=== PATIENT | female | born 1950 | race Caucasian/White ===

== ENCOUNTER → 2016-08-13 | Outpatient (CLI) | payer OTHER, BC ==
[~2016-08-13] MED LIST: ACET-1256 PO; ALBUAER2 INH; CPR500 PO; FAMO20TA11 PO; GLC/500 PO; LEVO-366 PO; LISI-461 PO; LOVAZA PO; METR-163 PO; MOME6000 NAE; MULT-1027 PO; NASONEX NAE; NXM/40 PO; SULF800T23 PO; TRIA1SPR4; VTMD PO; WHEAPOW13 PO
--- NOTE | 2016-08-13 16:11 | MAMMOGRAPHY REPORT ---
BILATERAL DIGITAL SCREENING MAMMOGRAM WITH CAD: 08/13/2016 CLINICAL HISTORY: Routine screening. Patient has no complaints. TECHNIQUE: Current study was also evaluated with a Computer Aided Detection (CAD) system. Bilatera l CC and MLO views were obtained. COMPARISON: Comparison is made to exams dated: 08/05/2015 mammogram, 07/30/2014 mammogram, 07/17/2014 mammogram, 07/12/2013 mammogram, 07/05/2012 mammogram, and 06/30/2011 mammogram - [facility]. BREAST COMPOSITION: There are scattered areas of fibroglandular density in both breasts. FINDINGS: No suspicious masses, calcifications, or areas of architectural distortion are noted in e ither breast. There has been no significant interval change compared to prior exams. Scattered bila teral benign-appearing calcifications are not significantly changed. Small benign-appearing mass in the right inferior breast on the MLO view was previously marked with a mole marker and is therefore compatible with a mole. IMPRESSION: ACR BI-RADS CATEGORY 2: BENIGN There is no mammographic evidence of malignancy. A 1 year screening mammogram is recommended. The p atient will receive written notification of the results. Approximately 10% of breast cancers are not detected with mammography. A negative mammographic repor t should not delay biopsy if a clinically suggestive mass is present. Shoshana Zelaya M.D. /:08/13/2016 12:36:26 Trucker Hand: Liset KOEHLER)([place])([place]), [facility] letter sent: Normal 1/2 BI-RADS Code: ACR BI-RADS Category 2: Benign
== END | disposition home or self-care (01) ==
LOC: C.MAMM 11:14
PROVIDERS: ATTEND Obstetrics & Gynecology
DX: Z12.31 Encounter for screening mammogram for malignant neoplasm of breast (principal)

== ENCOUNTER → 2016-09-04 | Outpatient (CLI) | payer OTHER, BC ==
--- NOTE | 2016-09-04 11:17 | DIAGNOSTIC IMAGING REPORT ---
ULTRASOUND ABDOMEN COMPLETE CLINICAL HISTORY: Abnormal liver function studies. Fatigue. COMPARISON STUDY: No priors. TECHNIQUE: Real-time, grayscale, and color flow sonography of the abdomen was performed. Images are reviewed in the transverse and longitudinal planes. FINDINGS: Liver: The liver is mildly enlarged and demonstrates heterogeneously increased echotexture consistent with severe hepatic steatosis. Note that this degrades acoustic penetration of the liver. There is no intrahepatic biliary ductal dilatation. The main portal vein is patent. Gallbladder: The gallbladder is normal in appearance. No gallstones are identified. There is no gallbladder wall thickening or pericholecystic fluid. A sonographic Garzon's sign is reportedly absent. The common bile duct measures up to 0.5 cm in diameter. Pancreas: Visualized portions of the pancreatic head and body are normal in appearance. Spleen: The spleen is top normal in size and homogeneous in echotexture, measuring 13.3 cm in length. Kidneys: The kidneys are normal in size and echotexture. There is no hydronephrosis. The right kidney measures 10.5 cm in length and the left kidney measures 10.3 cm in length. No shadowing calculi are identified. Abdominal vasculature: Visualized portions of the abdominal aorta are normal in appearance. Ascites: None. IMPRESSION: 1. No acute sonographic abnormality is identified. 2. Hepatomegaly and severe hepatic steatosis. Electronically signed by: aGgan Alston M.D. 09/04/2016 11:16 AM Dictated Date/Time: 09/04/2016 11:14 AM
--- NOTE | 2016-09-04 11:17 | DIAGNOSTIC IMAGING REPORT ---
CHEST 2 VIEWS ROUTINE CLINICAL HISTORY: FATIGUE, COUGH COMPARISON STUDY: 01/15/2015 FINDINGS: The cardiac and mediastinal contours are normal. There is no evidence of focal pulmonary consolidation. There is no evidence of failure. No pleural effusions are visualized.[ There are persistent linear scar/atelectatic changes visualized in the lateral view localized either the lingula or right middle lobe. IMPRESSION: No active disease in the chest. Electronically signed by: Juan Fountain M.D. 09/04/2016 11:15 AM Dictated Date/Time: 09/04/2016 11:14 AM
== END | disposition home or self-care (01) ==
LOC: C.ULTR 10:17
PROVIDERS: ATTEND Internal Medicine
DX: R94.5 Abnormal results of liver function studies (principal); R53.83 Other fatigue; R05 Cough; R16.0 Hepatomegaly, not elsewhere classified; K76.0 Fatty (change of) liver, not elsewhere classified

== ENCOUNTER → 2016-09-12 | Outpatient (CLI) | payer OTHER, BC ==
[2016-09-12 15:21] LABS: HEMATOCRIT 40.6 % (37-47); MEAN CELL VOLUME 84.4 fL (80-100); MEAN CORPUSCULAR HEMOGLOBIN 30.4 pg (25-34); MEAN PLATELET VOLUME 10.2 fL (7.4-10.4); PLATELET COUNT 326 K/uL (130-400); RED BLOOD COUNT 4.81 M/uL (4.2-5.4); WHITE BLOOD COUNT 6.39 K/uL (4.8-10.8)
[2016-09-12 15:38] LABS: INR 1.1 (0.9-1.1); PROTHROMBIN TIME (PATIENT) 11.3 SECONDS (9.0-12.0)
[2016-09-12 15:42] LABS: ALT/SGPT 71 U/L (12-78); AST/SGOT 37 U/L (15-37); BLOOD UREA NITROGEN 15 mg/dl (7-18); BUN/CREATININE RATIO 21.7 (10-20); CALCIUM 8.9 mg/dl (8.5-10.1); CARBON DIOXIDE 26 mmol/L (21-32); CHLORIDE 103 mmol/L (98-107); CREATININE 0.69 mg/dl (0.60-1.20); GLUCOSE 104 mg/dl (70-99); SODIUM 140 mmol/L (136-145)
[2016-09-12 15:45] LABS: ALB/GLOB RATIO 1.3 (0.9-2); ALKALINE PHOSPHATASE 94 U/L (45-117)
[2016-09-12 15:59] LABS: HEPATITIS B AB NEG
== END | disposition home or self-care (01) ==
LOC: C.LAB 14:41
PROVIDERS: ATTEND Internal Medicine
DX: R94.5 Abnormal results of liver function studies (principal); R16.0 Hepatomegaly, not elsewhere classified; E11.9 Type 2 diabetes mellitus without complications

== ENCOUNTER 2016-09-20 18:43 | Emergency (ER) | payer OTHER, BC ==
[~2016-09-20] VITALS: Ht 152.4 cm; Wt 76.2 kg
[~2016-09-20 18:43] MED LIST changes: -ACET-1256 PO; -CPR500 PO; -FAMO20TA11 PO; -GLC/500 PO; -LISI-461 PO; -LOVAZA PO; -METR-163 PO; -MOME6000 NAE; -MULT-1027 PO; -NASONEX NAE; -NXM/40 PO; -SULF800T23 PO; -TRIA1SPR4; -VTMD PO; -WHEAPOW13 PO
[2016-09-20 18:58] VITALS: TEMP 37.2; Ht 152.4 cm; Wt 76.2 kg
[2016-09-20] MEDS ORDERED: SODIUM CHLORIDE 0.9% 500ML 500 ML IV STA (20:54)
[2016-09-20] MEDS ORDERED: ACETAMINOPHEN 500 MG TAB PO STA (20:54)
[2016-09-20 21:05] LABS: BASO % 0.7 %; BASO ABS # 0.05 K/uL (0-0.2); COMPLETE YES; EOS % 3.2 %; IG% 0.1 %; LYMPH % 46.7 %; LYMPH ABS # 3.25 K/uL (1.2-3.4); MEAN CELL VOLUME 83.9 fL (80-100); MEAN CORPUSCULAR HEMOGLOBIN 29.9 pg (25-34); MEAN CORPUSCULAR HGB CONC 35.7 g/dl (32-36); MEAN PLATELET VOLUME 10.7 fL (7.4-10.4); MONO % 6.6 %; NEUT % 42.7 %; PLATELET COUNT 299 K/uL (130-400); RED BLOOD COUNT 4.41 M/uL (4.2-5.4); WHITE BLOOD COUNT 6.96 K/uL (4.8-10.8)
--- NOTE | 2016-09-20 21:06 | EMERGENCY ROOM VISIT NOTE ---
History Report prepared by Abena: Key Villagomez Under the Supervision of: Dr. Leland Vuong M.D. First contact with patient: 20:27 Chief Complaint: INFECTION Stated Complaint: LIVER BIOPSY 09-18,CHILLS,WEAK,FREQUENT URINE Nursing Triage Summary: Pt reports she had a liver biopsy on Wednesday at [place]. Pt reports she started having chills last night. Pt also reports she is having some urinary symptoms. History of Present Illness The patient is a 66 year old female who presents to the Emergency Room with complaints of a possible infection beginning DRAIN LAYER. The patient had an US of her liver on September 04. Her PCP ordered this because her liver enzymes were elevated. She was diagnosed with fatty liver disease and then two days ago she had a liver biopsy at [facility]. This was a conscious sedation procedure and she was not intubated. The patient states that she was feeling well after the procedure. She was advised to take Aleve for pain and has been doing that. Yesterday afternoon she started to feel unwell. She was feeling hot and cold and generally weak. She reports tenderness at the site of the liver biopsy under her right breast. She notes increased urinary frequency as well. The patient has been taking Tylenol for her symptoms today. She called [facility] and they advised her to follow-up with her doctor tomorrow. The patient is a retired nurse and states that she did not feel comfortable waiting until tomorrow to be seen. She denies any fevers. She rates her current pain as a 4/ 10. Source of History: patient Onset: DRAIN LAYER Position: other (global) Symptom Intensity: 4/10 Quality: other (infection) Timing: worsening Modifying Factors (Worsening): other (recent liver biopsy) Modifying Factors (Relieving): tylenol Associated Symptoms: + chills, + urinary symptoms, No fevers Review of Systems See HPI for pertinent positives & negatives. A total of 10 systems reviewed and were otherwise negative. Past Medical & Surgical Medical Problems: (1) Cameron's Esophagus (2) Diabetes (3) Fibromyalgia (4) Hyperlipidemia (5) Pneumonia Family History No pertinent history stated. Social History Smoking Status: Never Smoker Marital Status: Housing Status: lives with significant other Occupation Status: retired Current/Historical Medications Scheduled Esomeprazole Magnesium (Nexium), 40 MG PO DAILY Famotidine (Pepcid), 20 MG PO HS Lisinopril (Lisinopril), 10 MG PO BID Metformin Hcl (Glucophage), 500 MG PO BID Multiple Vitamin (Multi Vitamin), 1 TAB PO DAILY [Lovaza], 1 GM PO BID [Nasonex], 1 SPRAY ДМИТРИЙ BID Scheduled PRN Acetaminophen (Tylenol), 500 MG PO DIRECTED PRN for Pain Allergies Coded Allergies: Mepivacaine (Verified Allergy, Unknown, UNKNOWN, 09/20/16) Physical Exam Vital Signs Date Time Temp Pulse Resp B/P Pulse Ox O2 Delivery O2 Flow Rate FiO2 09/20/16 22:41 68 18 138/66 94 Room Air 09/20/16 21:02 72 18 146/80 95 Room Air 09/20/16 18:58 37.2 91 20 184/84 98 Room Air Physical Exam GENERAL: Patient is a healthy-appearing well-nourished 66 year old female. HEAD: Normocephalic atraumatic EYES: Ocular movements intact pupils equal and react to light OROPHARYNX mucous membranes are moist no exudates present no erythema or edema present NECK: Supple no nuchal rigidity CHEST: Good equal expansion LUNGS: Clear and equal to auscultation CARDIAC: Normal S1 and S2 ABDOMEN: Soft nontender no guarding, surgical site in the RUQ with no evidence of infection and minimal bruising. BACK: No CVA tenderness EXTREMITIES: No pain upon palpation normal muscle strength in all groups no clubbing cyanosis or edema NEURO: Patient is following commands is answering questions appropriately. Alert and oriented x3 Cranial Nerves 2-12 grossly intact Medical Decision & Procedures Laboratory Results 09/20/16 20:08 Red Blood Count 4.41, Mean Corpuscular Volume 83.9, Mean Corpuscular Hemoglobin 29.9, Mean Corpuscular Hemoglobin Concent 35.7, Mean Platelet Volume 10.7, Neutrophils (%) (Auto) 42.7, Lymphocytes (%) (Auto) 46.7, Monocytes (%) (Auto) 6.6, Eosinophils (%) (Auto) 3.2, Basophils (%) (Auto) 0.7, Neutrophils # (Auto) 2.97, Lymphocytes # (Auto) 3.25, Monocytes # (Auto) 0.46, Eosinophils # (Auto) 0.22, Basophils # (Auto) 0.05 09/20/16 20:08 09/20/16 21:40 Test 09/20/16 00:00 09/20/16 20:08 09/20/16 21:05 09/20/16 21:40 Urine Color YELLOW Urine Appearance CLEAR (CLEAR) Urine pH 6.0 (4.5-7.5) Urine Specific [place] 1.000 (1.000-1.030) Urine Protein NEG (NEG) Urine Glucose (UA) NEG (NEG) Urine Ketones NEG (NEG) Urine Occult Blood NEG (NEG) Urine Nitrite NEG (NEG) Urine Bilirubin NEG (NEG) Urine Urobilinogen NEG (NEG) Urine Leukocyte Esterase NEG (NEG) White Blood Count 6.96 K/uL (4.8-10.8) Red Blood Count 4.41 M/uL (4.2-5.4) Hemoglobin 13.2 g/dL (12.0-16.0) Hematocrit 37.0 % (37-47) Mean Corpuscular Volume 83.9 fL (80-100) Mean Corpuscular Hemoglobin 29.9 pg (25-34) Mean Corpuscular Hemoglobin Concent 35.7 g/dl (32-36) Platelet Count 299 K/uL (130-400) Mean Platelet Volume 10.7 fL (7.4-10.4) Neutrophils (%) (Auto) 42.7 % Lymphocytes (%) (Auto) 46.7 % Monocytes (%) (Auto) 6.6 % Eosinophils (%) (Auto) 3.2 % Basophils (%) (Auto) 0.7 % Neutrophils # (Auto) 2.97 K/uL (1.4-6.5) Lymphocytes # (Auto) 3.25 K/uL (1.2-3.4) Monocytes # (Auto) 0.46 K/uL (0.11-0.59) Eosinophils # (Auto) 0.22 K/uL (0-0.5) Basophils # (Auto) 0.05 K/uL (0-0.2) RDW Standard Deviation 40.2 fL (36.4-46.3) RDW Coefficient of Variation 13.2 % (11.5-14.5) Immature Granulocyte % (Auto) 0.1 % Immature Granulocyte # (Auto) 0.01 K/uL (0.00-0.02) Anion Gap 12.0 mmol/L (3-11) Est Creatinine Clear Calc Drug Dose 62.2 ml/min Estimated GFR () 89.1 Estimated GFR (Non- 76.9 BUN/Creatinine Ratio 9.7 (10-20) Calcium Level 8.6 mg/dl (8.5-10.1) Total Bilirubin 0.7 mg/dl (0.2-1) Alanine Aminotransferase (ALT/SGPT) 55 U/L (12-78) Alkaline Phosphatase 87 U/L (45-117) Total Protein 7.2 gm/dl (6.4-8.2) Albumin 3.7 gm/dl (3.4-5.0) Lipase 237 U/L (73-393) Influenza Type A (RT-PCR) Neg for Influ A (NEG) Influenza Type A Antigen Neg for Influ A (NEG) Influenza Type B Antigen Neg for Influ B (NEG) Influenza Type B (RT-PCR) Neg for Influ B (NEG) Direct Bilirubin < 0.1 mg/dl (0-0.2) Aspartate Amino Transf (AST/SGOT) 25 U/L (15-37) Labs reviewed by ED physician. Medications Administered Medications (Trade) Dose Ordered Sig/Pierre Route Start Time Stop Time Status Last Admin Dose Admin Sodium Chloride (Nss 500ml) 500 ml @ 999 mls/hr Q31M STAT IV 09/20/16 20:54 09/20/16 21:24 DC 09/20/16 21:02 999 MLS/HR Acetaminophen (Tylenol Tab) 1,000 mg NOW STAT PO 09/20/16 20:54 09/20/16 20:55 DC 09/20/16 21:02 1,000 MG ED Course 2040: Past medical records reviewed. The patient was evaluated in room C1B. A complete history and physical examination was performed. 2053: Tylenol tab 1000 mg PO, NSS 500 ml @ 999 mls/hr IV 1: I reassessed the patient at this time. She is feeling better and resting comfortably. I discussed the results and treatment plan with the patient. I answered all pertaining questions that she had. She expressed understanding and verbalized agreement. The patient will be discharged home. Medical Decision Differential diagnosis: Etiologies such as viral syndrome, otitis, pharyngitis, pneumonia, influenza, meningitis, urinary tract infection, sepsis, bacteremia, as well as others were entertained. This is a 66-year-old female who presents emergency department complaining of chills as well as urinary frequency. An IV was established, patient given normal saline bolus. I will note that the patient does not have an elevation in her white blood count has a normal renal profile and has a normal liver profile. I do not see any evidence of infection. Based on these findings I feel the patient can be safely discharged home for follow-up with her primary care physician. Patient was in agreement with the treatment plan. Impression Primary Impression: Chills (without fever) Scribe Attestation The scribe's documentation has been prepared under my direction and personally reviewed by me in its entirety. I confirm that the note above accurately reflects all work, treatment, procedures, and medical decision making performed by me. Departure Information Dispostion Home / Self-Care Referrals Sera Crespo M.D. (PCP) Forms HOME CARE DOCUMENTATION FORM, IMPORTANT VISIT INFORMATION, WORK / SCHOOL INSTRUCTIONS Patient Instructions My [facility] Additional Instructions Follow up with DR Crespo's office You have been examined and treated today on an emergency basis only. This is not a substitute for, or an effort to provide, complete comprehensive medical care. It is impossible to recognize and treat all injuries or illnesses in a single emergency department visit. It is therefore important that you follow up closely with Dr Crespo. Call as soon as possible for an appointment. Thank you for your time and consideration. I look forward to speaking with you again soon. Please don't hesitate to call us if you have any questions.
[2016-09-20 21:10] LABS: URINE APPEARANCE CLEAR (CLEAR); URINE BILIRUBIN NEG (NEG); URINE COLOR YELLOW; URINE NITRITE NEG (NEG); UROBILINOGEN NEG (NEG)
[2016-09-20 21:21] LABS: MANUAL MICROSCOPIC REQUIRED? NO; REVIEW REQ? NO
[2016-09-20 21:24] LABS: ALKALINE PHOSPHATASE 87 U/L (45-117); ALT/SGPT 55 U/L (12-78); BLOOD UREA NITROGEN 8 mg/dl (7-18); BUN/CREATININE RATIO 9.7 (10-20); CALCIUM 8.6 mg/dl (8.5-10.1); CARBON DIOXIDE 23 mmol/L (21-32); CHLORIDE 110 mmol/L (98-107); CREATININE 0.79 mg/dl (0.60-1.20); GLUCOSE 130 mg/dl (70-99); SODIUM 145 mmol/L (136-145)
[2016-09-20] MEDS ORDERED: LOVAZA PO (22:13)
[2016-09-20] MEDS ORDERED: LISI-461 PO (22:13)
[2016-09-20] MEDS ORDERED: MULT-1027 PO (22:13)
[2016-09-20] MEDS ORDERED: NASONEX NAE (22:13)
[2016-09-20] MEDS ORDERED: GLC/500 PO (22:13)
[2016-09-20] MEDS ORDERED: FAMO20TA11 PO (22:13)
[2016-09-20] MEDS ORDERED: NXM/40 PO (22:13)
[2016-09-20] MEDS ORDERED: ACET-1256 PO (22:13)
[2016-09-20 22:19] LABS: POTASSIUM 3.4 mmol/L (3.5-5.1)
[2016-09-20 22:24] LABS: AST/SGOT 25 U/L (15-37)
[2016-09-20 22:41] VITALS: BP 138/66; PULSE 68; O2SAT 94
[2016-09-20 22:50] LABS: INFLUENZA A PCR Neg for Influ A (NEG); INFLUENZA B PCR Neg for Influ B (NEG)
[2016-11-09] MEDS ORDERED: METR-163 PO (13:00)
[2016-11-09] MEDS ORDERED: CPR500 PO (13:00)
== END 2016-09-20 22:43 | disposition home or self-care (01) ==
LOC: C.EDB 18:44 → C.EDC 22:43
DX: R68.83 Chills (without fever) (principal); E11.9 Type 2 diabetes mellitus without complications; E78.5 Hyperlipidemia, unspecified; K22.70 Barrett's esophagus without dysplasia; Z79.84 Long term (current) use of oral hypoglycemic drugs; Z79.899 Other long term (current) drug therapy; Z88.8 Allergy status to other drugs, medicaments and biological substances

== ENCOUNTER → 2016-10-07 | Outpatient (CLI) | payer OTHER, BC ==
[~2016-10-07] MED LIST changes: +ACET-1256 PO; -ALBUAER2 INH; +CPR500 PO; +FAMO20TA11 PO; +GLC/500 PO; -LEVO-366 PO; +LISI-461 PO; +LOVAZA PO; +METR-163 PO; +MOME6000 NAE; +MULT-1027 PO; +NASONEX NAE; +NXM/40 PO; +SULF800T23 PO; +TRIA1SPR4; +VTMD PO; +WHEAPOW13 PO
== END | disposition home or self-care (01) ==
LOC: C.LAB 12:53
PROVIDERS: ATTEND Internal Medicine Gastroenterology
DX: K76.0 Fatty (change of) liver, not elsewhere classified (principal)

== ENCOUNTER 2016-10-08 15:38 | Emergency (ER) | payer OTHER, BC ==
[~2016-10-08] VITALS: Ht 152.4 cm; Wt 74.0 kg
[~2016-10-08 15:38] MED LIST changes: -CPR500 PO; -METR-163 PO; -MOME6000 NAE; -SULF800T23 PO; -TRIA1SPR4; -VTMD PO; -WHEAPOW13 PO
[2016-10-08 15:44] VITALS: TEMP 37; Ht 152.4 cm; Wt 74.0 kg
[2016-10-08] MEDS ORDERED: SODIUM CHLORIDE 0.9% 1000ML 1,000 ML IV STA (17:38)
[2016-10-08] MEDS ORDERED: ACETAMINOPHEN 500 MG TAB PO STA (18:06)
[2016-10-08 18:11] LABS: URINE APPEARANCE CLEAR (CLEAR); URINE BILIRUBIN NEG (NEG); URINE COLOR RED; URINE EPITHELIAL CELL AUTO 0-5 /lpf (0-5); URINE NITRITE NEG (NEG); UROBILINOGEN NEG (NEG); ZZUR CULT IF INDIC CLEAN CATCH YES
[2016-10-08 18:19] LABS: MANUAL MICROSCOPIC REQUIRED? NO; REVIEW REQ? NO
[2016-10-08 19:07] LABS: BASO % 0.2 %; BASO ABS # 0.02 K/uL (0-0.2); COMPLETE YES; EOS % 0.4 %; HEMATOCRIT 37.1 % (37-47); IG% 0.1 %; LYMPH ABS # 1.85 K/uL (1.2-3.4); MEAN CELL VOLUME 83.9 fL (80-100); MEAN CORPUSCULAR HEMOGLOBIN 29.6 pg (25-34); MEAN CORPUSCULAR HGB CONC 35.3 g/dl (32-36); MEAN PLATELET VOLUME 10.1 fL (7.4-10.4); MONO % 4.2 %; NEUT % 76.1 %; PLATELET COUNT 291 K/uL (130-400); RED BLOOD COUNT 4.42 M/uL (4.2-5.4); WHITE BLOOD COUNT 9.73 K/uL (4.8-10.8)
[2016-10-08 19:24] LABS: BUN/CREATININE RATIO 16.9 (10-20); CALCIUM 8.7 mg/dl (8.5-10.1); CREATININE 0.6 mg/dl (0.60-1.20); POTASSIUM 3.5 mmol/L (3.5-5.1)
[2016-10-08] MEDS ORDERED: SULFAMETHOXAZOLE/TRIMETHOPRIM DS 800/160MG TAB PO STA (19:47)
[2016-10-08] MEDS ORDERED: SULF800T23 PO (19:50)
[2016-10-08 20:10] VITALS: BP 129/79; PULSE 91; O2SAT 95
--- NOTE | 2016-10-08 23:38 | EMERGENCY ROOM VISIT NOTE ---
History Report prepared by Abena: Mignon Del Valle Under the Supervision of: Dr. Osvaldo Barksdale D.O. 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 She states that the hematuria is improving, but she is still experiencing it. The patient states that she woke up today with a pressure in her lower abdomen that felt similar to when she has to urinate. The patient voided after and passed blood and clots in her urine. She still experiences abdominal pressure when she tries to urinate. Additionally, she is experiencing increased urinary frequency and she states that she was nearly incontinent of urine all day so she had to wear a pad. She also began experiencing chills today. The patient denies fevers over 100.4, nausea, vomiting, and diarrhea. The patient has never experienced an urinary tract infection in the past. The patient saw [facility]ATOR to make sure it wasn't coming from her vagina, but they said that it wasn't and they recommended that she come into the ED. The patient adds that her blood pressure was elevated when it was taken in the [facility] office and she states that it was 160/108. A urine culture was sent to the lab and they prescribed her Cipro. The patient states that she had an enlarged liver on ultrasound on September 04, 2016 and a biopsy on September 18, 2016 showed that she has fatty liver disease. She is also experiencing intermittent constipation that started about one month ago , but she has been worked up for that in the past. Her most recent bowel movement was last night. The patient still has her gallbladder and appendix. She is not on any blood thinners. Source of History: patient Onset: this morning Position: other (bladder, urinary tract) Quality: other (hematuria) Timing: other (persistent) Associated Symptoms: + chills, No diarrhea, No fevers, No nausea, No vomiting Review of Systems See HPI for pertinent positives & negatives. A total of 10 systems reviewed and were otherwise negative. Past Medical & Surgical Medical Problems: (1) Cameron's Esophagus (2) Diabetes (3) Fibromyalgia (4) Hyperlipidemia (5) Pneumonia Family History Cancer Heart disease Hypertension Lung disease Social History Smoking Status: Never Smoker Marital Status: Housing Status: lives with significant other Occupation Status: retired Current/Historical Medications Scheduled Esomeprazole Magnesium (Nexium), 40 MG PO DAILY Famotidine (Pepcid), 20 MG PO HS Lisinopril (Lisinopril), 10 MG PO BID Metformin Hcl (Glucophage), 500 MG PO BID Multiple Vitamin (Multi Vitamin), 1 TAB PO DAILY Sulfamethoxazole-Trimethoprim (Bactrim Ds 800MG/160MG), 1 TAB PO BID [Lovaza], 1 GM PO BID [Nasonex], 1 SPRAY ДМИТРИЙ BID Scheduled PRN Acetaminophen (Tylenol), 500 MG PO DIRECTED PRN for Pain Allergies Coded Allergies: Mepivacaine (Verified Allergy, Unknown, UNKNOWN, 10/08/16) Physical Exam Vital Signs Date Time Temp Pulse Resp B/P Pulse Ox O2 Delivery O2 Flow Rate FiO2 10/08/16 20:10 91 20 129/79 95 10/08/16 18:54 88 20 133/65 98 Room Air 10/08/16 15:44 37.0 112 18 124/74 95 Room Air Physical Exam GENERAL: alert, sitting up in bed, disheveled, anxious appearing, well nourished , no acute distress, non-toxic EYE EXAM: normal conjunctiva, PERRL and EOM's grossly intact OROPHARYNX: no exudate, no erythema, lips, buccal mucosa, and tongue normal and mucous membranes are moist NECK: supple, no nuchal rigidity, no adenopathy, non-tender LUNGS: Clear to auscultation. Normal chest wall mechanics HEART: Tachycardic rate, no murmurs, S1 normal and S2 normal ABDOMEN: abdomen soft, non-tender, normo-active bowel sounds, no masses, no rebound or guarding. BACK: Back is symmetrical on inspection and there is no deformity, no midline tenderness, no CVA tenderness. SKIN: no rashes and no bruising UPPER EXTREMITIES: upper extremities are grossly normal. LOWER EXTREMITIES: No pitting edema. : Normal exam per chart from Rufino Mancilla PA-C at [facility] NEURO EXAM: Normal sensorium, cranial nerves II-XII grossly intact, normal speech, no gross weakness of arms, no gross weakness of legs. Medical Decision & Procedures Laboratory Results 10/08/16 18:50 Red Blood Count 4.42, Mean Corpuscular Volume 83.9, Mean Corpuscular Hemoglobin 29.6, Mean Corpuscular Hemoglobin Concent 35.3, Mean Platelet Volume 10.1, Neutrophils (%) (Auto) 76.1, Lymphocytes (%) (Auto) 19.0, Monocytes (%) (Auto) 4.2, Eosinophils (%) (Auto) 0.4, Basophils (%) (Auto) 0.2, Neutrophils # (Auto) 7.40, Lymphocytes # (Auto) 1.85, Monocytes # (Auto) 0.41, Eosinophils # (Auto) 0.04, Basophils # (Auto) 0.02 10/08/16 18:50 Test 10/08/16 17:50 10/08/16 18:50 Urine Color RED Urine Appearance CLEAR (CLEAR) Urine pH 5.0 (4.5-7.5) Urine Specific Buckner 1.000 (1.000-1.030) Urine Protein 1+ (NEG) Urine Glucose (UA) NEG (NEG) Urine Ketones NEG (NEG) Urine Occult Blood 3+ (NEG) Urine Nitrite NEG (NEG) Urine Bilirubin NEG (NEG) Urine Urobilinogen NEG (NEG) Urine Leukocyte Esterase MODERATE (NEG) Urine WBC (Auto) >30 /hpf (0-5) Urine RBC (Auto) >30 /hpf (0-4) Urine Hyaline Casts (Auto) 1-5 /lpf (0-5) Urine Epithelial Cells (Auto) 0-5 /lpf (0-5) Urine Bacteria (Auto) NEG (NEG) White Blood Count 9.73 K/uL (4.8-10.8) Red Blood Count 4.42 M/uL (4.2-5.4) Hemoglobin 13.1 g/dL (12.0-16.0) Hematocrit 37.1 % (37-47) Mean Corpuscular Volume 83.9 fL (80-100) Mean Corpuscular Hemoglobin 29.6 pg (25-34) Mean Corpuscular Hemoglobin Concent 35.3 g/dl (32-36) Platelet Count 291 K/uL (130-400) Mean Platelet Volume 10.1 fL (7.4-10.4) Neutrophils (%) (Auto) 76.1 % Lymphocytes (%) (Auto) 19.0 % Monocytes (%) (Auto) 4.2 % Eosinophils (%) (Auto) 0.4 % Basophils (%) (Auto) 0.2 % Neutrophils # (Auto) 7.40 K/uL (1.4-6.5) Lymphocytes # (Auto) 1.85 K/uL (1.2-3.4) Monocytes # (Auto) 0.41 K/uL (0.11-0.59) Eosinophils # (Auto) 0.04 K/uL (0-0.5) Basophils # (Auto) 0.02 K/uL (0-0.2) RDW Standard Deviation 39.9 fL (36.4-46.3) RDW Coefficient of Variation 13.1 % (11.5-14.5) Immature Granulocyte % (Auto) 0.1 % Immature Granulocyte # (Auto) 0.01 K/uL (0.00-0.02) Anion Gap 9.0 mmol/L (3-11) Est Creatinine Clear Calc Drug Dose 80.6 ml/min Estimated GFR () 108.5 Estimated GFR (Non- 93.7 BUN/Creatinine Ratio 16.9 (10-20) Calcium Level 8.7 mg/dl (8.5-10.1) Total Bilirubin 1.1 mg/dl (0.2-1) Direct Bilirubin 0.2 mg/dl (0-0.2) Aspartate Amino Transf (AST/SGOT) 30 U/L (15-37) Alanine Aminotransferase (ALT/SGPT) 50 U/L (12-78) Alkaline Phosphatase 82 U/L (45-117) Total Protein 6.7 gm/dl (6.4-8.2) Albumin 3.6 gm/dl (3.4-5.0) Lipase 174 U/L (73-393) Laboratory results per my review. Medications Administered Medications (Trade) Dose Ordered Sig/Pierre Route Start Time Stop Time Status Last Admin Dose Admin Sodium Chloride (Nss 1000ml) 1,000 ml @ 999 mls/hr Q1H1M STAT IV 10/08/16 17:38 10/08/16 18:38 DC 10/08/16 17:59 999 MLS/HR Acetaminophen (Tylenol Tab) 1,000 mg NOW STAT PO 10/08/16 18:06 10/08/16 18:07 DC 10/08/16 18:18 1,000 MG Trimethoprim/ Sulfamethoxazole (Septra Ds 800/ 160MG Tab) 1 tab NOW STAT PO 10/08/16 19:47 10/08/16 19:48 DC 10/08/16 20:05 1 TAB ED Course ED COURSE: Vital signs were reviewed and showed tachycardia. The patients medical record was reviewed The above diagnostic studies were performed and reviewed. ED treatments and interventions as stated above. 0: The patient was evaluated in room B5. A complete history and physical examination was performed. 1737: Ordered Sodium Chloride 1000 ml @ 999 mls/hr IV 1805: Ordered Tylenol Tab 1000 mg PO 1940: Upon reevaluation, the patient is doing well. I discussed my findings with the patient and she understands and agrees with the treatment plan. Based on the patients age, coexisting illnesses, exam and lab findings the decision to treat as an outpatient was made. The patient remained stable while under my care. The patient appeared well at the time of discharge. 1946: Ordered Trimethoprim/Sulfamethoxazole 1 tab PO Medical Decision Differential diagnoses includes but is not limited to appendicitis, diverticulitis, small bowel obstruction, malignancy, hernia, urinary tract infection, torsion, and ectopic , perforation, trauma, infectious. Patient is a 66-year-old female who presents the ER for urinary frequency, burning and pressure. Patient also noticed hematuria which started earlier this morning. CBC along with BMP, bilirubin, LFTs and lipase are unremarkable. UA shows leukocytes along with white cells. Patient was updated regards to findings. She had no abdominal pain. Patient was given a dose of Bactrim and discharged on antibiotics as this is likely UTI. Pelvic was performed by her oncologist and was negative. I did not repeat this. Patient states that she is referred over as her blood pressure systolically was 160. Upon presentation it was 120. She has no complaints regards to this. She will need to follow-up to make sure that this clears with her primary care doctor and this was expressed to her. Discussed with Pt concerning signs and symptoms to watch out for. Pt was instructed to follow up with their PCP and discussed with the patient their option to return to the ED at anytime for persistent or worsening symptoms. The appropriate anticipatory guidance and out-patient management, including indications for return to the emergency department, were explained at length to the patient and understood. Impression Primary Impression: UTI (urinary tract infection) Additional Impression: Hematuria Scribe Attestation The scribe's documentation has been prepared under my direction and personally reviewed by me in its entirety. I confirm that the note above accurately reflects all work, treatment, procedures, and medical decision making performed by me. Departure Information Dispostion Home / Self-Care Prescriptions Sulfamethoxazole-Trimethoprim (Bactrim Ds 800MG/160MG) 1 Tab Tab 1 TAB PO BID, #14 TAB Prov: Osvaldo Barksdale, DO 10/08/16 Referrals Sera Crespo M.D. (PCP) Forms HOME CARE DOCUMENTATION FORM, IMPORTANT VISIT INFORMATION, WORK / SCHOOL INSTRUCTIONS Patient Instructions ED UTI Cystitis Female, [facility] Additional Instructions Please follow up with your primary care doctor with in the next 24 hours. Any worsening of your symptoms, please return to the ED immediately. This includes fevers greater than 100.4, shaking chills, confusion, worsening of her symptoms , unable to void, or any other concerning signs or symptoms from your standpoint. Please follow with her primary care doctor as instructed above and following the resolution of your symptoms. Problem Qualifiers Primary Impression: UTI (urinary tract infection) Urinary tract infection type: site unspecified Hematuria presence: with hematuria Qualified Codes: N39.0 - Urinary tract infection, site not specified ; R31.9 - Hematuria, unspecified
[2016-11-09] MEDS ORDERED: METR-163 PO (13:00)
[2016-11-09] MEDS ORDERED: CPR500 PO (13:00)
== END 2016-10-08 20:11 | disposition home or self-care (01) ==
LOC: C.EDB 15:39
DX: N39.0 Urinary tract infection, site not specified (principal); R31.9 Hematuria, unspecified; E78.5 Hyperlipidemia, unspecified; E11.9 Type 2 diabetes mellitus without complications; K76.0 Fatty (change of) liver, not elsewhere classified; Z79.899 Other long term (current) drug therapy; Z88.8 Allergy status to other drugs, medicaments and biological substances; Z80.9 Family history of malignant neoplasm, unspecified; Z82.49 Family history of ischemic heart disease and other diseases of the circulatory system

== ENCOUNTER → 2016-10-08 | Outpatient (CLI) | payer OTHER, BC ==
[2016-10-08 18:11] LABS: MANUAL MICROSCOPIC REQUIRED? YES; REVIEW REQ? NO; SULFASALICYLIC ACID POS (NEG); URINE APPEARANCE TURBID (CLEAR); URINE COLOR RED
[2016-10-08 18:15] LABS: URINE RBC >30 /hpf (0-4); URINE WBC >30 /hpf (0-5)
[2016-10-08 18:16] LABS: URINE BACTERIA NEG (NEG)
== END | disposition home or self-care (01) ==
LOC: C.LABSPEC 17:31
PROVIDERS: ATTEND Obstetrics & Gynecology
DX: R39.9 Unspecified symptoms and signs involving the genitourinary system (principal)

== ENCOUNTER → 2016-10-26 | Outpatient (CLI) | payer OTHER, BC ==
[~2016-10-26] MED LIST changes: +CPR500 PO; +METR-163 PO; +MOME6000 NAE; +TRIA1SPR4; +VTMD PO; +WHEAPOW13 PO
--- NOTE | 2016-10-26 09:55 | DIAGNOSTIC IMAGING REPORT ---
ULTRASOUND ABDOMEN COMPLETE CLINICAL HISTORY: Gross hematuria.. COMPARISON STUDY: Abdominal ultrasound dated 09/04/2016. TECHNIQUE: Real-time, grayscale, and color flow sonography of the abdomen was performed. Images are reviewed in the transverse and longitudinal planes. FINDINGS: Liver: The liver is mildly enlarged and demonstrates heterogeneously increased echotexture consistent with hepatic steatosis. Fatty sparing is noted adjacent to gallbladder fossa. Additional geographic foci of fatty sparing are suspected. There is no intrahepatic biliary ductal dilatation. The main portal vein is patent. Gallbladder: The gallbladder is normal in appearance. No gallstones are identified. There is no gallbladder wall thickening or pericholecystic fluid. A sonographic Garzon's sign is reportedly absent. The common bile duct measures up to 0.5 cm in diameter. Pancreas: Visualized portions of the pancreatic head and body are normal in appearance. The splenic vein is patent. Spleen: The spleen is normal in size and echotexture, measuring 7.4 cm in length. Kidneys: The kidneys are normal in size and echotexture. There is no hydronephrosis. The right kidney measures 9.7 cm in length and the left kidney measures 10.5 cm in length. No shadowing calculi are identified. Abdominal vasculature: Visualized portions of the abdominal aorta and IVC are normal as imaged. Ascites: None. Bladder: The partially decompressed bladder is grossly normal in appearance. A left ureteral jet was identified. The prevoid volume measures 73 cc. No post void residual was identified. IMPRESSION: 1. No acute sonographic abnormality is identified. 2. Hepatomegaly and hepatic steatosis. Foci of geographic fatty sparing are suspected. 3. No gallstones are seen. 4. The bladder was partially decompressed and grossly unremarkable. No post void residual was identified. Electronically signed by: Gagan Alston M.D. 10/26/2016 9:54 AM Dictated Date/Time: 10/26/2016 9:51 AM
== END | disposition home or self-care (01) ==
LOC: C.ULTR 08:58
PROVIDERS: ATTEND Internal Medicine Gastroenterology
DX: R31.0 Gross hematuria (principal); R35.0 Frequency of micturition; R16.0 Hepatomegaly, not elsewhere classified; K76.0 Fatty (change of) liver, not elsewhere classified

== ENCOUNTER 2016-11-07 13:27 | Observation (INO) | payer OTHER, BC ==
[~2016-11-07] VITALS: Ht 152.4 cm; Wt 73.7 kg
[~2016-11-07 13:27] MED LIST changes: -CPR500 PO; -METR-163 PO; -MOME6000 NAE; -TRIA1SPR4; -VTMD PO; -WHEAPOW13 PO
[2016-11-07] MEDS ORDERED: TRIA1SPR4 (13:48)
[2016-11-07] MEDS ORDERED: WHEAPOW13 PO (13:49)
[2016-11-07] MEDS ORDERED: SODIUM CHLORIDE 0.9% 1000ML 1,000 ML IV ONE (14:37)
[2016-11-07] MEDS ORDERED: SODIUM CHLORIDE 0.9% 1000ML 1,000 ML IV STA (14:37)
[2016-11-07 14:53] LABS: BASO % 0.4 %; BASO ABS # 0.04 K/uL (0-0.2); COMPLETE YES; EOS % 0.7 %; HEMATOCRIT 38.2 % (37-47); IG% 0.2 %; LYMPH % 24.1 %; LYMPH ABS # 2.19 K/uL (1.2-3.4); MEAN CELL VOLUME 83.8 fL (80-100); MEAN CORPUSCULAR HEMOGLOBIN 29.2 pg (25-34); MEAN CORPUSCULAR HGB CONC 34.8 g/dl (32-36); MONO % 5.6 %; PLATELET COUNT 326 K/uL (130-400); RED BLOOD COUNT 4.56 M/uL (4.2-5.4)
--- NOTE | 2016-11-07 14:56 | EMERGENCY ROOM VISIT NOTE ---
History Report prepared by Abena: Sheldon Gaspar Under the Supervision of: Dr. Domenic Snyder M.D. First contact with patient: 14:32 Chief Complaint: ABDOMINAL PAIN Stated Complaint: ABDOMINAL PAIN AND RECTAL BLEEDING Nursing Triage Summary: Pt states diffuse abd pain x 3 day. Last night hard time moving bowels, cramping, two episodes of diarrhea. This morning bright red blood, now mucus. Liver bx 09/18/16. "This is the third episode since then. I have had a kidney hemorrhage recently too. The pain isn't as sharp as before, but it is tender. I vomited a little bit last night. I can't hold water down or I get crampy. I am really weak too." History of Present Illness The patient is a 66 year old female who presents to the Emergency Room with complaints of sudden rectal bleeding beginning several hours prior to arrival. She currently rates her discomfort as a 6/10 in severity. The patient associates waxing and waning abdominal pain, intermittent abdominal cramping, diarrhea with mucus and bright red blood, chills, and weakness with today's symptoms. She states she had a liver biopsy performed in September of this year due to likely fatty liver disease. The patient notes she had a traumatic kidney injury due to the liver biopsy and she has been experiencing problems since. She states her abdominal pain began three days ago, and worsens with eating or drinking. The patient notes she had a normal bowel movement last night around 2230, but she was experiencing abdominal cramping and diaphoresis at that time. She states this morning her bowel movement revealed bright red blood. The patient notes she was recently on Bactrim for a UTI. She denies a fever, recent travel, and sick contact. Source of History: patient Onset: several hours [employer] Position: other (rectum) Symptom Intensity: 6/10 Quality: other (bleeding) Timing: other (sudden) Associated Symptoms: + abdominal pain (cramping), + chills, + diarrhea, + hematochezia, + weakness, No fevers Review of Systems See HPI for pertinent positives & negatives. A total of 10 systems reviewed and were otherwise negative. Past Medical & Surgical Medical Problems: (1) Cameron's Esophagus (2) Diabetes (3) Diverticulitis (4) Fibromyalgia (5) H/O migraine (6) Hyperlipidemia (7) Hypertension (8) Pneumonia Old medical records were reviewed. Nurse's notes were reviewed and I agree with. Family History Cancer Heart disease Hypertension Lung disease Social History Smoking Status: Never Smoker Marital Status: Housing Status: lives with significant other Occupation Status: retired Current/Historical Medications Scheduled Ergocalciferol (Vitamin D), 1 CAP PO 2XWK Esomeprazole Magnesium (Nexium), 40 MG PO DAILY Famotidine (Pepcid), 20 MG PO HS Lisinopril (Lisinopril), 10 MG PO BID Metformin Hcl (Glucophage), 500 MG PO BID Mometasone Furoate (Nasal) (Mometasone Furoate), 2 SPRAY ДМИТРИЙ BID Multiple Vitamin (Multi Vitamin), 1 TAB PO DAILY Wheat Dextrin (Benefiber), 1 TBS PO DAILY [Lovaza], 1 GM PO BID Scheduled PRN Acetaminophen (Tylenol), 500 MG PO DIRECTED PRN for Pain Allergies Coded Allergies: Mepivacaine (Verified Allergy, Unknown, UNKNOWN, 11/07/16) Physical Exam Vital Signs Date Time Temp Pulse Resp B/P Pulse Ox O2 Delivery O2 Flow Rate FiO2 11/07/16 16:56 89 16 138/88 96 11/07/16 15:24 86 16 123/70 96 11/07/16 13:31 37.1 96 18 151/89 95 Room Air Physical Exam General: Non-ill appearing. Middle aged female. No acute distress. HEENT: Normal cephalic atraumatic. Pupils are equal round and reactive to light. Extraocular movements are intact. Oropharynx is pink with moist mucous membranes. No swelling of the mouth lips or tongue. Neck: Supple with a midline trachea. No meningeal signs or stiffness, no JVD or bruits. No Stridor. Chest: Clear to auscultation bilaterally. No wheezes or rhonchi. No increased work of breathing. Heart: regular rate and rhythm. Abdomen: Soft nontender, nondistended without rebound guarding or rigidity. Rectal exam (in the presence of a female nurse): Brown stool. Trace guaiac positive. No masses. Extremities: No cyanosis clubbing or edema. No calf tenderness or assymetry Spine/Back. Non tender to palpation. No CVA tenderness Skin: Good turgor without rashes. Neurologic exam: Cranial nerves two through 12 are intact. Motor and sensation are intact and symmetrical throughout. Medical Decision & Procedures ER Provider Diagnostic Interpretation: CT results as stated below per my review and radiologist interpretation: CT ABD/PELVIS IV CONTRAST ONLY CLINICAL HISTORY: Abdominal pain and rectal bleeding COMPARISON STUDY: None. TECHNIQUE: Following the IV administration of 118 mL of Optiray-320, CT scan of the abdomen and pelvis was performed from the lung bases to the proximal femurs. Images are reviewed in the axial, sagittal, and coronal planes. IV contrast was administered without complication. CT DOSE: 575.10 mGy.cm FINDINGS: Lower chest: There are basilar atelectatic changes. There is a 22 mm right lower lobe lung cyst. There is a small hiatal hernia. Liver: There is mild hepatic steatosis. No focal masses are visualized. The portal vein appears patent. Gallbladder: Unremarkable. Spleen: Normal in size and attenuation. Pancreas: Unremarkable. Adrenal glands: Unremarkable. Kidneys: There is symmetric renal cortical enhancement. The kidneys are normal in size without hydronephrosis. Bowel: There are no transition zones to indicate bowel obstruction. The appendix appears normal. There is colonic diverticulosis. There is infiltration of the perisigmoid diverticular fat consistent with acute diverticulitis. Borderline wall thickening of the descending colon is nonspecific but could be related to underdistention. There are no fluid collections to indicate an abscess. Peritoneum: There is no intraperitoneal free air or abdominal ascites. Vasculature: The abdominal aorta is normal in course and caliber. Adenopathy: None. Pelvic viscera: At least one small uterine fibroid is suspected. Skeletal structures: No destructive osseous lesions are seen. IMPRESSION: 1. Acute sigmoid diverticulitis. No evidence of abscess 2. No evidence of bowel obstruction. No evidence of free air 3. Normal appendix Electronically signed by: Juan Fountain M.D. 11/07/2016 4:04 PM Laboratory Results Test 11/07/16 14:35 Immature Granulocyte % (Auto) 0.2 % White Blood Count 9.10 K/uL (4.8-10.8) Red Blood Count 4.56 M/uL (4.2-5.4) Hemoglobin 13.3 g/dL (12.0-16.0) Hematocrit 38.2 % (37-47) Mean Corpuscular Volume 83.8 fL (80-100) Mean Corpuscular Hemoglobin 29.2 pg (25-34) Mean Corpuscular Hemoglobin Concent 34.8 g/dl (32-36) Platelet Count 326 K/uL (130-400) Mean Platelet Volume 10.0 fL (7.4-10.4) Neutrophils (%) (Auto) 69.0 % Lymphocytes (%) (Auto) 24.1 % Monocytes (%) (Auto) 5.6 % Eosinophils (%) (Auto) 0.7 % Basophils (%) (Auto) 0.4 % Neutrophils # (Auto) 6.28 K/uL (1.4-6.5) Lymphocytes # (Auto) 2.19 K/uL (1.2-3.4) Monocytes # (Auto) 0.51 K/uL (0.11-0.59) Eosinophils # (Auto) 0.06 K/uL (0-0.5) Basophils # (Auto) 0.04 K/uL (0-0.2) Immature Granulocyte # (Auto) 0.02 K/uL (0.00-0.02) Prothrombin Time 11.0 SECONDS (9.0-12.0) Prothromb Time International Ratio 1.0 (0.9-1.1) Activated Partial Thromboplast Time 26.7 SECONDS (21.0-31.0) Partial Thromboplastin Ratio 1.0 Total Bilirubin 1.0 mg/dl (0.2-1) Direct Bilirubin 0.2 mg/dl (0-0.2) Aspartate Amino Transf (AST/SGOT) 26 U/L (15-37) Alanine Aminotransferase (ALT/SGPT) 44 U/L (12-78) Alkaline Phosphatase 102 U/L (45-117) Total Protein 7.3 gm/dl (6.4-8.2) Albumin 3.5 gm/dl (3.4-5.0) Lipase 181 U/L (73-393) Laboratory studies as stated above per my review. Medications Administered Medications (Trade) Dose Ordered Sig/Pierre Route Start Time Stop Time Status Last Admin Dose Admin Sodium Chloride 1,000 ml @ 999 mls/hr Q1H1M STAT IV 11/07/16 14:37 11/07/16 15:37 DC 11/07/16 14:47 999 MLS/HR Sodium Chloride (Nss 1000ml) 1,000 ml @ 150 mls/hr Q6H40M ONCE IV 11/07/16 14:37 11/07/16 19:05 DC 11/07/16 16:54 150 MLS/HR Ciprofloxacin/ Dextrose (Cipro / D5w) 400 mg NOW STAT IV 11/07/16 16:53 11/07/16 16:57 DC 11/07/16 17:05 400 MG Metronidazole (Flagyl / Nss) 500 mg NOW STAT IV 11/07/16 16:53 11/07/16 16:57 DC 11/07/16 18:53 500 MG ED Course 1433: Past medical records reviewed. The patient was evaluated in room B2, and a complete history and physical examination were performed. 1437: Ordered Sodium Chloride 1,000 ml @ 150 mls/hr IV, Sodium Chloride 1,000 ml @ 999 mls/hr IV. 1610: Reevaluated the patient at this time, and she is resting comfortably. I reviewed the results with the patient but am waiting on the CT. 1637: Reevaluated and updated the patient at this time. 1651: Ordered Morphine Sulfate 2 mg IV, Zofran Inj 4 mg IV. 1653: Ordered Metronidazole 500 mg IV, Ciprofloxacin/Dextrose 400 mg IV. 1654: I spoke to Mel Sullivan (Hospitalist) about the patient's case, and she will follow the patient for further evaluation. Medical Decision Differentials include, but are not limited to; GI bleed, anal fissure, colitis, infection, anemia, electrolyte or metabolic abnormalities. This patient comes in as described above. She was placed in room B2. She's been having lower abdominal cramping and had some rectal bleeding today. She's been hemodynamically stable. IV access established was hydrated with IV significant normal saline. Blood work was obtained. She has no cigarette white count or anemia. She has no significant electrolyte or metabolic abnormalities. A rectal exam there is brown stool which was trace positive. There is no definite hemorrhoid or fissure seen, although I suspect there may be a fissure. CAT scan shows findings consistent with acute diverticulitis. No abscess or free air. She was given IV Flagyl and IV Cipro. She was given IV morphine and IV Zofran for pain and nausea management as well as IV hydration. She does not feel that she can go home. I do think she needs to be admitted for IV antibiotics, observation and hydration and GI consultation and further treatment and evaluation. Consults Time Called: 1651 Consulting Physician: Mel Sullivan (Hospitalist) Returned Call: 1653 I spoke to Mel Sullivan (Hospitalist) about the patient's case, and she will follow the patient for further evaluation. Impression Primary Impression: Acute diverticulitis Additional Impressions: GI bleed Lower abdominal pain Scribe Attestation The scribe's documentation has been prepared under my direction and personally reviewed by me in its entirety. I confirm that the note above accurately reflects all work, treatment, procedures, and medical decision making performed by me. Departure Information Dispostion Being Evaluated By Hospitalist (Mel Sullivan (Hospitalist) ) Referrals Sera Crespo M.D. (PCP) Problem Qualifiers
[2016-11-07] MEDS ORDERED: OPTIRAY 320 IV PRN (15:00)
[2016-11-07 15:04] LABS: CALCIUM 8.9 mg/dl (8.5-10.1); CREATININE 0.63 mg/dl (0.60-1.20); POTASSIUM 3.7 mmol/L (3.5-5.1)
--- NOTE | 2016-11-07 16:07 | DIAGNOSTIC IMAGING REPORT ---
CT ABD/PELVIS IV CONTRAST ONLY CLINICAL HISTORY: Abdominal pain and rectal bleeding COMPARISON STUDY: None. TECHNIQUE: Following the IV administration of 118 mL of Optiray-320, CT scan of the abdomen and pelvis was performed from the lung bases to the proximal femurs. Images are reviewed in the axial, sagittal, and coronal planes. IV contrast was administered without complication. CT DOSE: 575.10 mGy.cm FINDINGS: Lower chest: There are basilar atelectatic changes. There is a 22 mm right lower lobe lung cyst. There is a small hiatal hernia. Liver: There is mild hepatic steatosis. No focal masses are visualized. The portal vein appears patent. Gallbladder: Unremarkable. Spleen: Normal in size and attenuation. Pancreas: Unremarkable. Adrenal glands: Unremarkable. Kidneys: There is symmetric renal cortical enhancement. The kidneys are normal in size without hydronephrosis. Bowel: There are no transition zones to indicate bowel obstruction. The appendix appears normal. There is colonic diverticulosis. There is infiltration of the perisigmoid diverticular fat consistent with acute diverticulitis. Borderline wall thickening of the descending colon is nonspecific but could be related to underdistention. There are no fluid collections to indicate an abscess. Peritoneum: There is no intraperitoneal free air or abdominal ascites. Vasculature: The abdominal aorta is normal in course and caliber. Adenopathy: None. Pelvic viscera: At least one small uterine fibroid is suspected. Skeletal structures: No destructive osseous lesions are seen. IMPRESSION: 1. Acute sigmoid diverticulitis. No evidence of abscess 2. No evidence of bowel obstruction. No evidence of free air 3. Normal appendix Electronically signed by: Juan Fountain M.D. 11/07/2016 4:04 PM Dictated Date/Time: 11/07/2016 4:01 PM
[2016-11-07] MEDS ORDERED: MoRPHine SULFATE 2 MG/ML CARP IV STA (16:51)
[2016-11-07] MEDS ORDERED: ONDANSETRON INJ 2 MG/ML 2 ML VIAL IV STA (16:51)
[2016-11-07] MEDS ORDERED: METRONIDAZOLE 500MG / 100ML NSS IV STA (16:53)
[2016-11-07] MEDS ORDERED: CIPROFLOXACIN 400MG / 200ML D5W IV STA (16:53)
[2016-11-07] MEDS ORDERED: IV FLUIDS COMPLETED PRN (17:45)
[2016-11-07] MEDS ORDERED: SODIUM CHLORIDE 0.9% 1000ML 1,000 ML IV SCH (18:15)
[2016-11-07] MEDS ORDERED: GLUCAGON FOR INJ 1 MG VIAL SQ PRN (18:15)
[2016-11-07] MEDS ORDERED: ONDANSETRON INJ 2 MG/ML 2 ML VIAL IV PRN (18:15)
[2016-11-07] MEDS ORDERED: GLUCOSE 40% GEL 15 GM TUBE PO PRN (18:15)
[2016-11-07] MEDS ORDERED: POLYETHYLENE (MIRALAX) 17 GM PACK PO PRN (18:15)
[2016-11-07] MEDS ORDERED: DEXTROSE 50% 50 ML SYR IV PRN (18:15)
[2016-11-07] MEDS ORDERED: ACETAMINOPHEN 325 MG TAB PO PRN (18:15)
[2016-11-07] MEDS ORDERED: GLUCOSE 10 TABS/TUBE PO PRN (18:15)
[2016-11-07] MEDS ORDERED: MOME6000 NAE (18:18)
[2016-11-07] MEDS ORDERED: VTMD PO (18:20)
[2016-11-07 18:45] VITALS: BP 133/77; PULSE 88; TEMP 36.6; O2SAT 95; Ht 152.4 cm; Wt 73.7 kg
[2016-11-07] MEDS ORDERED: MoRPHine SULFATE 2 MG/ML CARP IV PRN (18:45)
[2016-11-07] MEDS ORDERED: TRAMADOL HCL 50 MG TAB PO PRN (18:45)
--- NOTE | 2016-11-07 18:57 | History and Physical ---
History & Physical Date & Time of Service: Nov 07, 2016 at 18:35 Chief Complaint: Abdominal Pain And Rectal Bleeding Primary Care Physician: Sera Crespo M.D. History of Present Illness Source: patient 66 yo F presents with 1-2 days of crampy abdominal pain associated with some diarrhea and intermittent bright red blood per rectum. She states that she had a liver biopsy performed two months ago for fatty liver, which showed inflammation but there was no evidence of cirrhosis. Subsequently she developed AIYANA, and then developed a UTI shortly after this which was successfully (symptoms are resolved) treated with Bactrim as an outpatient. She went to see her GI doctor and another [employer] physician about the bleeding despite the fact that she knew the blood she saw was from the urine. That was a couple of weeks ago. She currently admits to a minor frontal headache not associated with any visual changes, congestion, sinus pressure, sore throat or cough. She also denies any chest pain, shortness of breath, fevers, nausea, or vomiting, joint pain, or swelling. She is tolerating PO but not very hungry and she does admit to some chills on night (2 nights ago) when her abdominal cramping first started. Last colonoscopy was reported to be early 2015 with evidence of inflamed diverticula at that time (she was having abdominal pain at that time, also). Past Medical/Surgical History Medical Problems: (1) Cameron's Esophagus Status: Chronic (2) Diabetes Status: Chronic (3) Diverticulitis Status: Chronic (4) Fibromyalgia Status: Chronic (5) H/O migraine Status: Chronic (6) Hyperlipidemia Status: Chronic (7) Hypertension Status: Chronic Family History Cancer Heart disease Hypertension Lung disease Social History Smoking Status: Never Smoker Smokeless Tobacco Use: No Alcohol Use: socially Drug Use: none Marital Status: Housing status: lives with significant other Occupational Status: retired (RN) Immunizations History of Influenza Vaccine: No History of Tetanus Vaccine?: No History of Pneumococcal: No History of Hepatitis B Vaccine: No Multi-Drug Resistant Organisms History of MDRO: No Allergies Coded Allergies: Mepivacaine (Verified Allergy, Unknown, UNKNOWN, 11/07/16) Home Medications Scheduled Ergocalciferol (Vitamin D), 1 CAP PO 2XWK Esomeprazole Magnesium (Nexium), 40 MG PO DAILY Famotidine (Pepcid), 20 MG PO HS Lisinopril (Lisinopril), 10 MG PO BID Metformin Hcl (Glucophage), 500 MG PO BID Mometasone Furoate (Nasal) (Mometasone Furoate), 2 SPRAY ДМИТРИЙ BID Multiple Vitamin (Multi Vitamin), 1 TAB PO DAILY Wheat Dextrin (Benefiber), 1 TBS PO DAILY [Lovaza], 1 GM PO BID Scheduled PRN Acetaminophen (Tylenol), 500 MG PO DIRECTED PRN for Pain Review of Systems All systems reviewed and negative except as indicated in HPI Physical Exam Vital Signs Date Time Temp Pulse Resp B/P Pulse Ox O2 Delivery O2 Flow Rate FiO2 11/07/16 18:10 85 16 128/78 95 11/07/16 16:56 89 16 138/88 96 11/07/16 15:24 86 16 123/70 96 11/07/16 13:31 37.1 96 18 151/89 95 Room Air GEN: WNWD, in no acute distress, alert and appropriate HEENT: NC/AT, normal sclerae, pharynx non-acute, sinuses are non-tender to palpation CARDIO: reg rate, S1/2 heard without m/g/r LUNGS: CTA bilaterally, no crackles, rales or wheezes, good diaphragmatic excursion ABD: soft, TTP in LLQ, suprapubic and RLQ, non-distended, +BS EXTREMITY: RP and DP palpable 2+ bilat, no LE swelling or edema, extremities are warm and well-perfused NEURO: CN 2-12 grossly intact, sensation intact throughout MUSC: moves all extremities equally, moves around the bed and sits up with ease SKIN: warm and dry Diagnostics Laboratory Results Results Past 24 Hours Test 11/07/16 14:35 Range/Units White Blood Count 9.10 4.8-10.8 K/uL Red Blood Count 4.56 4.2-5.4 M/uL Hemoglobin 13.3 12.0-16.0 g/dL Hematocrit 38.2 37-47 % Mean Corpuscular Volume 83.8 80-100 fL Mean Corpuscular Hemoglobin 29.2 25-34 pg Mean Corpuscular Hemoglobin Concent 34.8 32-36 g/dl Platelet Count 326 130-400 K/uL Mean Platelet Volume 10.0 7.4-10.4 fL Neutrophils (%) (Auto) 69.0 % Lymphocytes (%) (Auto) 24.1 % Monocytes (%) (Auto) 5.6 % Eosinophils (%) (Auto) 0.7 % Basophils (%) (Auto) 0.4 % Neutrophils # (Auto) 6.28 1.4-6.5 K/uL Lymphocytes # (Auto) 2.19 1.2-3.4 K/uL Monocytes # (Auto) 0.51 0.11-0.59 K/uL Eosinophils # (Auto) 0.06 0-0.5 K/uL Basophils # (Auto) 0.04 0-0.2 K/uL RDW Standard Deviation 39.1 36.4-46.3 fL RDW Coefficient of Variation 12.9 11.5-14.5 % Immature Granulocyte % (Auto) 0.2 % Immature Granulocyte # (Auto) 0.02 0.00-0.02 K/uL Prothrombin Time 11.0 9.0-12.0 SECONDS Prothromb Time International Ratio 1.0 0.9-1.1 Activated Partial Thromboplast Time 26.7 21.0-31.0 SECONDS Partial Thromboplastin Ratio 1.0 Sodium Level 139 136-145 mmol/L Potassium Level 3.7 3.5-5.1 mmol/L Chloride Level 104 98-107 mmol/L Carbon Dioxide Level 24 21-32 mmol/L Anion Gap 11.0 3-11 mmol/L Blood Urea Nitrogen 13 7-18 mg/dl Creatinine 0.63 0.60-1.20 mg/dl Est Creatinine Clear Calc Drug Dose 76.6 ml/min Estimated GFR () 106.8 Estimated GFR (Non- 92.2 BUN/Creatinine Ratio 20.0 10-20 Random Glucose 121 70-99 mg/dl Calcium Level 8.9 8.5-10.1 mg/dl Total Bilirubin 1.0 0.2-1 mg/dl Direct Bilirubin 0.2 0-0.2 mg/dl Aspartate Amino Transf (AST/SGOT) 26 15-37 U/L Alanine Aminotransferase (ALT/SGPT) 44 12-78 U/L Alkaline Phosphatase 102 45-117 U/L Total Protein 7.3 6.4-8.2 gm/dl Albumin 3.5 3.4-5.0 gm/dl Lipase 181 73-393 U/L Diagnostic Radiology CT A/P with IV contrast: IMPRESSION: 1. Acute sigmoid diverticulitis. No evidence of abscess 2. No evidence of bowel obstruction. No evidence of free air 3. Normal appendix EKG admission EKG is pending. Impression Assessment and Plan 66 yo F with acute sigmoid diverticulitis 1. Acute sigmoid diverticulitis-She is tolerating PO somewhat but is having pain and is concerned about the blood per rectum despite hemodynamic stability and Hb >13. Will admit for observation and start her on clear liquids. Cipro/ Flagyl continued IV along with some IVF x 1 L. Pain control with Tramadol, APAP or morphine as needed. Monitor H/H in am. With recent abx use and diarrhea will check c-diff 2. DMII-hold metformin for hospital admission as well as recent contrasted study today. Small dose Lantus ordered 10 Units at night with ISS. 3. vitamin D def-reports taking 50K units twice weekly--concern for toxicity, so will check level in am. 4. HTN-controlled, cont lisinopril 5. GERD-cont PPI 6. Hyperlipidemia-statin intolerant, interested in trying Zetia. Currently on Lovaza. DVT prophy: Lovenox FULL CODE Dispo-likely home in am. Elise Jean Baptiste, DO Hospitalist Level of Care Med/Surg Resuscitation Status FULL RESUSCITATION VTE Prophylaxis VTE Risk Assessment Done? Y/N: Yes Risk Level: Moderate Given or contraindicated: Enoxaparin (Lovenox)SQ Social Service Consult None Apply
[2016-11-07] MEDS ORDERED: PHARMACY GLYCEMIC MGMT CONSULT PRN (19:15)
[2016-11-07] MEDS: LISINOPRIL 10 MG TAB PO SCH (20:32)
[2016-11-07] MEDS: INSULIN ASPART 100 UNITS/ML 3 ML PEN SC SCH (20:33)
[2016-11-07] MEDS: INSULIN GLARGINE SOLOSTAR 100 UNITS/ML 3 ML PEN SC SCH (20:33)
[2016-11-07] MEDS: FAMOTIDINE 20 MG TAB PO SCH (20:33)
[2016-11-07] MEDS: ENOXAPARIN 40 MG/0.4 ML SYR SQ SCH (20:34)
[2016-11-07 23:03] VITALS: BP 128/72; PULSE 78; TEMP 36.4; O2SAT 93
[2016-11-08] VITALS: O2SAT 95
[2016-11-08] MEDS: METRONIDAZOLE / NSS 500 MG in PREMIXED NSS 100 ML IV SCH ×3 (02:19→18:14)
[2016-11-08] MEDS: CIPROFLOXACIN / D5W 400 MG in PREMIXED IN D5W 200 ML IV SCH ×2 (05:02→16:08)
[2016-11-08 07:20] LABS: HEMATOCRIT 36.7 % (37-47); MEAN CELL VOLUME 86.2 fL (80-100); MEAN CORPUSCULAR HEMOGLOBIN 29.6 pg (25-34); MEAN CORPUSCULAR HGB CONC 34.3 g/dl (32-36); PLATELET COUNT 290 K/uL (130-400); RED BLOOD COUNT 4.26 M/uL (4.2-5.4); WHITE BLOOD COUNT 6.75 K/uL (4.8-10.8)
[2016-11-08 07:46] VITALS: BP 117/72; PULSE 74; TEMP 36.5; O2SAT 95
[2016-11-08 07:49] LABS: BUN/CREATININE RATIO 13.7 (10-20); CALCIUM 8.2 mg/dl (8.5-10.1); CREATININE 0.63 mg/dl (0.60-1.20); MAGNESIUM 2.1 mg/dl (1.8-2.4); POTASSIUM 3.6 mmol/L (3.5-5.1)
[2016-11-08] MEDS: MULTIVITAMIN TAB PO SCH (07:50)
[2016-11-08] MEDS: LISINOPRIL 10 MG TAB PO SCH ×2 (07:50→20:16)
[2016-11-08] MEDS: PANTOprazole SOD 40 MG TAB PO SCH (07:50)
[2016-11-08] MEDS: FLUTICASONE PROPIONATE NA SPR 16 GM BTL NAE SCH (07:50)
[2016-11-08] MEDS: INSULIN ASPART 100 UNITS/ML 3 ML PEN SC SCH ×4 (07:51→20:17)
--- NOTE | 2016-11-08 12:06 | Progress Note ---
Internal Med Progress Note Date of Service: Nov 08, 2016. Provider Documentation: SUBJECTIVE: Patient is doing better, but still c/o abdominal cramps, mild bleeding per rectum No fever, chills, nausea, vomiting, diarrhea Tolerating Clear liquid diet well OBJECTIVE: Vital Signs-as noted below Exam: General-AAOX3, no distress Neck-Supple, No JVD Lungs-AEBE, no wheezing , rhonchi, crackles Heart-S1, S2 normal, no murmurs Abdomen-Soft,Mild tenderness lower quadrant, BS present, no rigidity Extremities-No edema Lab data as noted below. ASSESSMENT & PLAN: 66 yo F with acute sigmoid diverticulitis. ACUTE SIGMOID DIVERTICULITIS : Clinically improving but still has abdominal cramps, mild rectal bleeding Afebrile, no leucocytosis -Clear liquid--> Advance to mechanical soft diet -IV fluids -IV Ciprofloxacin/IV Flagyl (Day 2) -C diff - negative DM-2 -Lantus , ISS, -Accuchecks VITAMIN D DEFICIENCY- -Vitamin D levels- follow up HTN- Controlled -Continue lisinopril GERD -Continue PPI HYPERLIPIDEMIA -Statin intolerant -Currently on Lovaza DVT prophy: Lovenox SQ FULL CODE DISPOSITION Expected discharge home when stable Vital Signs: Date Time Temp Pulse Resp B/P Pulse Ox O2 Delivery O2 Flow Rate FiO2 11/08/16 07:46 36.5 74 18 117/72 95 Room Air 11/08/16 00:00 95 Room Air 11/07/16 23:03 36.4 78 18 128/72 93 Room Air 11/07/16 18:45 36.6 88 18 133/77 95 Room Air 11/07/16 18:10 85 16 128/78 95 11/07/16 16:56 89 16 138/88 96 11/07/16 15:24 86 16 123/70 96 11/07/16 13:31 37.1 96 18 151/89 95 Room Air Lab Results: Results Past 24 Hours Test 11/07/16 14:35 11/07/16 20:01 11/08/16 06:55 11/08/16 07:52 Range/Units White Blood Count 9.10 6.75 4.8-10.8 K/uL Red Blood Count 4.56 4.26 4.2-5.4 M/uL Hemoglobin 13.3 12.6 12.0-16.0 g/dL Hematocrit 38.2 36.7 37-47 % Mean Corpuscular Volume 83.8 86.2 80-100 fL Mean Corpuscular Hemoglobin 29.2 29.6 25-34 pg Mean Corpuscular Hemoglobin Concent 34.8 34.3 32-36 g/dl Platelet Count 326 290 130-400 K/uL Mean Platelet Volume 10.0 10.0 7.4-10.4 fL Neutrophils (%) (Auto) 69.0 % Lymphocytes (%) (Auto) 24.1 % Monocytes (%) (Auto) 5.6 % Eosinophils (%) (Auto) 0.7 % Basophils (%) (Auto) 0.4 % Neutrophils # (Auto) 6.28 1.4-6.5 K/uL Lymphocytes # (Auto) 2.19 1.2-3.4 K/uL Monocytes # (Auto) 0.51 0.11-0.59 K/uL Eosinophils # (Auto) 0.06 0-0.5 K/uL Basophils # (Auto) 0.04 0-0.2 K/uL RDW Standard Deviation 39.1 42.0 36.4-46.3 fL RDW Coefficient of Variation 12.9 13.3 11.5-14.5 % Immature Granulocyte % (Auto) 0.2 % Immature Granulocyte # (Auto) 0.02 0.00-0.02 K/uL Prothrombin Time 11.0 9.0-12.0 SECONDS Prothromb Time International Ratio 1.0 0.9-1.1 Activated Partial Thromboplast Time 26.7 21.0-31.0 SECONDS Partial Thromboplastin Ratio 1.0 Sodium Level 139 143 136-145 mmol/L Potassium Level 3.7 3.6 3.5-5.1 mmol/L Chloride Level 104 108 98-107 mmol/L Carbon Dioxide Level 24 26 21-32 mmol/L Anion Gap 11.0 9.0 3-11 mmol/L Blood Urea Nitrogen 13 9 7-18 mg/dl Creatinine 0.63 0.63 0.60-1.20 mg/dl Est Creatinine Clear Calc Drug Dose 76.6 76.6 ml/min Estimated GFR () 106.8 106.8 Estimated GFR (Non- 92.2 92.2 BUN/Creatinine Ratio 20.0 13.7 10-20 Random Glucose 121 151 70-99 mg/dl Calcium Level 8.9 8.2 8.5-10.1 mg/dl Total Bilirubin 1.0 0.2-1 mg/dl Direct Bilirubin 0.2 0-0.2 mg/dl Aspartate Amino Transf (AST/SGOT) 26 15-37 U/L Alanine Aminotransferase (ALT/SGPT) 44 12-78 U/L Alkaline Phosphatase 102 45-117 U/L Total Protein 7.3 6.4-8.2 gm/dl Albumin 3.5 3.4-5.0 gm/dl Lipase 181 73-393 U/L Bedside Glucose 113 132 70-90 mg/dl Magnesium Level 2.1 1.8-2.4 mg/dl Microbiology Results 11/07/16 WBC Smear - Final, Complete 11/07/16 Shiga Toxin Test, Received Pending 11/07/16 Stool Culture, Received Pending 11/07/16 C.difficile Toxin B Gene (PCR) - Final, Complete No C. difficile toxin B gene detected
[2016-11-08 12:20] VITALS: BP 106/69; PULSE 71; TEMP 36.7; O2SAT 94
[2016-11-08 15:48] VITALS: BP 104/62; PULSE 76; TEMP 36.7; O2SAT 94
[2016-11-08] MEDS: FAMOTIDINE 20 MG TAB PO SCH (20:16)
[2016-11-08] MEDS: ENOXAPARIN 40 MG/0.4 ML SYR SQ SCH (20:17)
[2016-11-08] MEDS: INSULIN GLARGINE SOLOSTAR 100 UNITS/ML 3 ML PEN SC SCH (20:17)
[2016-11-08 23:11] VITALS: BP 103/49; PULSE 65; TEMP 36.6; O2SAT 96
[2016-11-09] MEDS: METRONIDAZOLE / NSS 500 MG in PREMIXED NSS 100 ML IV SCH ×2 (01:18→09:58)
[2016-11-09] MEDS: CIPROFLOXACIN / D5W 400 MG in PREMIXED IN D5W 200 ML IV SCH (03:43)
[2016-11-09 06:37] LABS: ESTIMATED AVERAGE GLUCOSE 143 mg/dl; HA1C FLAG Normal (Normal)
[2016-11-09 07:08] VITALS: BP 113/63; PULSE 72; TEMP 36.4; O2SAT 97
[2016-11-09] MEDS: INSULIN ASPART 100 UNITS/ML 3 ML PEN SC SCH ×2 (08:05→11:00)
[2016-11-09] MEDS: LISINOPRIL 10 MG TAB PO SCH (08:06)
[2016-11-09] MEDS: MULTIVITAMIN TAB PO SCH (08:09)
[2016-11-09] MEDS: PANTOprazole SOD 40 MG TAB PO SCH (08:09)
[2016-11-09] MEDS: FLUTICASONE PROPIONATE NA SPR 16 GM BTL NAE SCH (08:10)
--- NOTE | 2016-11-09 09:33 | Progress Note ---
Internal Med Progress Note Date of Service: Nov 09, 2016. Provider Documentation: SUBJECTIVE: Patient is doing much better today. Abdominal pain has almost resolved. No more bloody BMs. No fever, chills, nausea, vomiting, diarrhea. Tolerating Mechanical soft diet well OBJECTIVE: Vital Signs-as noted below Exam: General-AAOX3, no distress Neck-Supple, No JVD Lungs-AEBE, no wheezing , rhonchi, crackles Heart-S1, S2 normal, no murmurs Abdomen-Soft,Mild tenderness lower quadrant has resolved today, BS present, no rigidity Extremities-No edema Lab data as noted below. ASSESSMENT & PLAN: 66 yo F with acute sigmoid diverticulitis. ACUTE SIGMOID DIVERTICULITIS (Mild) : Clinically improved with abdominal pain, mild rectal bleeding resolved. Afebrile, no leucocytosis -Tolerating Mechanical Soft Diet well---> Advance to low fibre, diet -IV fluids- Ok to discontinue as tolerating PO well -IV Ciprofloxacin/IV Flagyl (Day 10/09) -Work up- C diff - negative; Stool cultures- negative DM-2 -Lantus , ISS, -Accuchecks VITAMIN D DEFICIENCY- -Vitamin D levels- 93.1 -On vitamin D supplements HTN- Controlled -Continue lisinopril GERD -Continue PPI HYPERLIPIDEMIA -Statin intolerant -Currently on Lovaza DVT prophy: Lovenox SQ FULL CODE DISPOSITION Expected discharge home today after blood work and tolerates regular diet Vital Signs: Date Time Temp Pulse Resp B/P Pulse Ox O2 Delivery O2 Flow Rate FiO2 11/09/16 08:00 Room Air 11/09/16 07:08 36.4 72 18 113/63 97 Room Air 11/09/16 00:00 Room Air 11/08/16 23:11 36.6 65 18 103/49 96 Room Air 11/08/16 20:00 Room Air 11/08/16 16:00 Room Air 11/08/16 15:48 36.7 76 20 104/62 94 11/08/16 12:20 36.7 71 18 106/69 94 Lab Results: Results Past 24 Hours Test 11/08/16 11:48 11/08/16 16:37 11/08/16 19:49 11/09/16 07:52 Range/Units Bedside Glucose 104 125 144 114 70-90 mg/dl Test 11/09/16 08:13 Range/Units
[2016-11-09 10:40] LABS: HEMATOCRIT 37.2 % (37-47); MEAN CELL VOLUME 86.3 fL (80-100); MEAN CORPUSCULAR HEMOGLOBIN 29.5 pg (25-34); MEAN CORPUSCULAR HGB CONC 34.1 g/dl (32-36); PLATELET COUNT 316 K/uL (130-400); RED BLOOD COUNT 4.31 M/uL (4.2-5.4); WHITE BLOOD COUNT 4.79 K/uL (4.8-10.8)
[2016-11-09 11:14] LABS: CALCIUM 8.7 mg/dl (8.5-10.1); CREATININE 0.83 mg/dl (0.60-1.20); POTASSIUM 3.5 mmol/L (3.5-5.1)
--- NOTE | 2016-11-09 12:59 | Discharge Summary ---
Discharge Summary Date of Service Nov 09, 2016. Discharge Summary Admission Date: Nov 07, 2016 at 17:25 Discharge Date: Nov 09, 2016 Discharge Disposition: Home Principal Diagnosis: 1. Acute sigmoid diverticulitis, Mild Secondary Diagnoses/Problems: 1. DM-2 2. HTN 3. GERD 4. Dyslipidemia Procedures: CT abdomen/Pelvis IV fluids IV antibiotics Consultations: None Pending Studies/Follow-Up: Instructions / Follow-Up Instructions / Follow-Up MEDICATION CHANGES: 1. New medication: Ciprofloxacin 400 mg PO BID/Flagyl 500 mg PO TID for 8 more days to complete course of 10 days of antibiotic FOLLOW UP: 1. With PCP (Dr Crespo) in 1 week. Please call for appt date/time 2. With GI in 6 weeks. Will need referral for colonoscopy in 6 weeks Medication Reconciliation Continued Medications: Acetaminophen (Tylenol) 500 Mg Tab 500 MG PO DIRECTED PRN for Pain, TAB Ergocalciferol (Vitamin D) 50,000 Interunit Cap 1 CAP PO 2XWK Esomeprazole Magnesium (Nexium) 40 Mg Capcr 40 MG PO DAILY, CAP Famotidine (Pepcid) 20 Mg Tab 20 MG PO HS, TAB Lisinopril (Lisinopril) 10 Mg Tab 10 MG PO BID Metformin Hcl (Glucophage) 500 Mg Tab 500 MG PO BID, TAB Mometasone Furoate (Nasal) (Mometasone Furoate) 50 Mcg/Act Spr 2 SPRAY ДМИТРИЙ BID Multiple Vitamin (Multi Vitamin) 1 Tab Tab 1 TAB PO DAILY [Lovaza] () 1 GM PO BID Discontinued Medications: Wheat Dextrin (Benefiber) 1 Pow Pow 1 TBS PO DAILY Admission Information HPI (per Admitting provider): 66 yo F presents with 1-2 days of crampy abdominal pain associated with some diarrhea and intermittent bright red blood per rectum. She states that she had a liver biopsy performed two months ago for fatty liver, which showed inflammation but there was no evidence of cirrhosis. Subsequently she developed AIYANA, and then developed a UTI shortly after this which was successfully (symptoms are resolved) treated with Bactrim as an outpatient. She went to see her GI doctor and another [employer] physician about the bleeding despite the fact that she knew the blood she saw was from the urine. That was a couple of weeks ago. She currently admits to a minor frontal headache not associated with any visual changes, congestion, sinus pressure, sore throat or cough. She also denies any chest pain, shortness of breath, fevers, nausea, or vomiting, joint pain, or swelling. She is tolerating PO but not very hungry and she does admit to some chills on night (2 nights ago) when her abdominal cramping first started. Last colonoscopy was reported to be early 2015 with evidence of inflamed diverticula at that time (she was having abdominal pain at that time, also). Physical Exam (per Admitting): GEN: WNWD, in no acute distress, alert and appropriate HEENT: NC/AT, normal sclerae, pharynx non-acute, sinuses are non-tender to palpation CARDIO: reg rate, S1/2 heard without m/g/r LUNGS: CTA bilaterally, no crackles, rales or wheezes, good diaphragmatic excursion ABD: soft, TTP in LLQ, suprapubic and RLQ, non-distended, +BS EXTREMITY: RP and DP palpable 2+ bilat, no LE swelling or edema, extremities are warm and well-perfused NEURO: CN 2-12 grossly intact, sensation intact throughout MUSC: moves all extremities equally, moves around the bed and sits up with ease SKIN: warm and dry Hospital Course 66 yo F with acute sigmoid diverticulitis. ACUTE SIGMOID DIVERTICULITIS (Mild) : Clinically improved with abdominal pain, mild rectal bleeding resolved. Afebrile, no leucocytosis -Tolerating Mechanical Soft Diet well---> Advance to low fibre, diet--> tolerating it well -IV fluids- Ok to discontinue as tolerating PO well -IV Ciprofloxacin/IV Flagyl (Day 10/09) --> Changed to PO Ciprofloxacin/Flagyl -Work up- C diff - negative; Stool cultures- negative -Recommend outpatient colonoscopy after 6 weeks after recovers from diverticulitis DM-2 -Lantus , ISS, -Accuchecks VITAMIN D DEFICIENCY- -Vitamin D levels- 93.1 -On vitamin D supplements HTN- Controlled -Continue lisinopril GERD -Continue PPI HYPERLIPIDEMIA -Statin intolerant -Currently on Lovaza DVT prophy: Lovenox SQ FULL CODE DISPOSITION Ok to discharge home today Total time spent on discharge = 25 minutes This includes examination of the patient, discharge planning, medication reconciliation, and communication with other providers. Discharge Instructions Discharge Goals Goal(s): Diagnostic testing, Therapeutic intervention Activity Recommendations Activity Limitations: resume your previous activity . Instructions / Follow-Up Instructions / Follow-Up MEDICATION CHANGES: 1. New medication: Ciprofloxacin 400 mg PO BID/Flagyl 500 mg PO TID for 8 more days to complete course of 10 days of antibiotic FOLLOW UP: 1. With PCP (Dr Crespo) in 1 week. Please call for appt date/time 2. With GI in 6 weeks. Will need referral for colonoscopy in 6 weeks Current Hospital Diet Patient's current hospital diet: Diabetes Type 2 Diet, Low Fiber Diet Discharge Diet Recommended Diet: AHA Diet (Heart Healthy), Diabetes Type 2 Diet, Low Fiber Diet Pending Studies Studies pending at discharge: no Laboratory Results Hemoglobin A1c Test 11/08/16 06:55 Range/Units Estimated Average Glucose 143 mg/dl Hemoglobin A1c 6.6 H 4.5-5.6 % Medical Emergencies . Who to Call and When: Medical Emergencies: If at any time you feel your situation is an emergency, please call 911 immediately. . Non-Emergent Contact Non-Emergency issues call your: Primary Care Provider . . "Provider Documentation" section prepared by Camila Lott. VTE Core Measure Inpt VTE Proph given/why not?: Enoxaparin (Lovenox)SQ
[2016-11-09] MEDS ORDERED: METR-163 PO (13:00)
[2016-11-09] MEDS ORDERED: CPR500 PO (13:00)
[2016-11-09 13:15] VITALS: BP 113/63; PULSE 72; TEMP 36.4; O2SAT 97
== END 2016-11-09 14:10 | disposition home or self-care (01) ==
LOC: ENRESERVDT → ENRESERVTM → C.EDB 13:29 → C.MS4W 17:25 → C.MS2W 11-09 09:12
PROVIDERS: ADMIT Internal Medicine; ATTEND Internal Medicine
DX: K57.92 Diverticulitis of intestine, part unspecified, without perforation or abscess without bleeding (principal); E11.9 Type 2 diabetes mellitus without complications; I10 Essential (primary) hypertension; K21.9 Gastro-esophageal reflux disease without esophagitis; K22.70 Barrett's esophagus without dysplasia; E78.5 Hyperlipidemia, unspecified; E55.9 Vitamin D deficiency, unspecified; M79.7 Fibromyalgia; Z82.49 Family history of ischemic heart disease and other diseases of the circulatory system; Z83.6 Family history of other diseases of the respiratory system

== ENCOUNTER → 2016-11-12 | Outpatient (CLI) | payer OTHER, BC ==
[~2016-11-12] MED LIST changes: +CPR500 PO; +METR-163 PO; +MOME6000 NAE; -NASONEX NAE; +VTMD PO
[2016-11-12 17:09] LABS: BASO % 1.1 %; BASO ABS # 0.07 K/uL (0-0.2); COMPLETE YES; EOS % 2.6 %; HEMATOCRIT 39.5 % (37-47); IG% 0.2 %; LYMPH % 40.6 %; LYMPH ABS # 2.62 K/uL (1.2-3.4); MEAN CELL VOLUME 84.8 fL (80-100); MEAN CORPUSCULAR HEMOGLOBIN 29.6 pg (25-34); MEAN CORPUSCULAR HGB CONC 34.9 g/dl (32-36); MEAN PLATELET VOLUME 10.2 fL (7.4-10.4); MONO % 7.7 %; NEUT % 47.8 %; PLATELET COUNT 341 K/uL (130-400); RED BLOOD COUNT 4.66 M/uL (4.2-5.4); WHITE BLOOD COUNT 6.46 K/uL (4.8-10.8)
[2016-11-12 17:21] LABS: URINE APPEARANCE CLEAR (CLEAR); URINE BILIRUBIN NEG (NEG); URINE COLOR YELLOW; URINE EPITHELIAL CELL AUTO >30 /lpf (0-5); URINE NITRITE NEG (NEG); URINE SPECIFIC GRAVITY 1.014 (1.000-1.030); UROBILINOGEN NEG (NEG)
[2016-11-12 17:36] LABS: MANUAL MICROSCOPIC REQUIRED? NO; REVIEW REQ? YES
== END | disposition home or self-care (01) ==
LOC: C.LAB 16:13
PROVIDERS: ATTEND Internal Medicine
DX: K57.33 Diverticulitis of large intestine without perforation or abscess with bleeding (principal); I95.9 Hypotension, unspecified; R35.0 Frequency of micturition

== ENCOUNTER → 2016-11-16 | Outpatient (CLI) | payer OTHER, BC ==
[2016-11-16 14:43] LABS: URINE APPEARANCE CLEAR (CLEAR); URINE BILIRUBIN NEG (NEG); URINE COLOR YELLOW; URINE NITRITE NEG (NEG); URINE SPECIFIC GRAVITY 1.003 (1.000-1.030); UROBILINOGEN NEG (NEG)
[2016-11-16 14:47] LABS: MANUAL MICROSCOPIC REQUIRED? NO; REVIEW REQ? YES
[2016-11-16 15:00] LABS: URINE EPITHELIAL CELL AUTO 0-5 /lpf (0-5)
--- NOTE | 2016-12-01 12:10 | CODING QUERY MEDICAL NECESSITY ---
CQSUPPORTING DIAGNOSIS NEEDED A supporting diagnosis is required for the test/procedure performed on this patient in order for us to be reimbursed by the patient's insurance. Please provide a supporting diagnosis for the following test/procedure listed below next to the test name along with your signature. *If there is no additional diagnosis for this patient that would support the following test/procedure please document that below next to the test/procedure. Test(s)/Procedure(s) that require a supporting diagnosis: DOS 11/16/16 URINE CULTURE Provider Signature: Date: Thank you Coretta Pierre [employer] Once completed, please kindly fax back to [phone] For questions please call [phone]
== END | disposition home or self-care (01) ==
LOC: C.LABSPEC 14:05
PROVIDERS: ATTEND Obstetrics & Gynecology
DX: N94.89 Other specified conditions associated with female genital organs and menstrual cycle (principal); R50.9 Fever, unspecified; R10.2 Pelvic and perineal pain

== ENCOUNTER → 2016-11-17 | Outpatient (CLI) | payer OTHER, BC ==
[2016-11-17 16:42] LABS: BASO % 0.6 %; BASO ABS # 0.04 K/uL (0-0.2); COMPLETE YES; EOS % 1.8 %; HEMATOCRIT 39.5 % (37-47); IG% 0.3 %; LYMPH ABS # 2.64 K/uL (1.2-3.4); MEAN CELL VOLUME 86.4 fL (80-100); MEAN CORPUSCULAR HGB CONC 34.7 g/dl (32-36); MEAN PLATELET VOLUME 10.6 fL (7.4-10.4); MONO % 7.7 %; NEUT % 52.6 %; PLATELET COUNT 342 K/uL (130-400); RED BLOOD COUNT 4.57 M/uL (4.2-5.4); WHITE BLOOD COUNT 7.13 K/uL (4.8-10.8)
[2016-11-17 16:58] LABS: BLOOD UREA NITROGEN 9 mg/dl (7-18); BUN/CREATININE RATIO 13.7 (10-20); CALCIUM 8.7 mg/dl (8.5-10.1); CARBON DIOXIDE 27 mmol/L (21-32); CHLORIDE 108 mmol/L (98-107); CREATININE 0.68 mg/dl (0.60-1.20); GLUCOSE 85 mg/dl (70-99); POTASSIUM 3.3 mmol/L (3.5-5.1); SODIUM 143 mmol/L (136-145)
[2016-11-17 17:00] LABS: ALB/GLOB RATIO 1.3 (0.9-2); ALKALINE PHOSPHATASE 77 U/L (45-117); ALT/SGPT 52 U/L (12-78); AST/SGOT 32 U/L (15-37)
== END | disposition home or self-care (01) ==
LOC: C.LAB 16:05
PROVIDERS: ATTEND Internal Medicine
DX: R10.814 Left lower quadrant abdominal tenderness (principal); R10.32 Left lower quadrant pain; I95.9 Hypotension, unspecified

== ENCOUNTER → 2016-11-19 | Outpatient (CLI) | payer OTHER, BC ==
[~2016-11-19] MED LIST changes: -METR-163 PO
[2016-11-19 16:33] LABS: BLOOD UREA NITROGEN 6 mg/dl (7-18); BUN/CREATININE RATIO 10.2 (10-20); CARBON DIOXIDE 28 mmol/L (21-32); CHLORIDE 106 mmol/L (98-107); CREATININE 0.61 mg/dl (0.60-1.20); GLUCOSE 96 mg/dl (70-99); POTASSIUM 3.6 mmol/L (3.5-5.1); SODIUM 141 mmol/L (136-145)
[2016-11-19 16:41] LABS: CALCIUM 9.4 mg/dl (8.5-10.1)
== END | disposition home or self-care (01) ==
LOC: C.LAB 14:07
PROVIDERS: ATTEND Internal Medicine
DX: E87.6 Hypokalemia (principal); I95.1 Orthostatic hypotension; R07.89 Other chest pain; E11.9 Type 2 diabetes mellitus without complications; E78.5 Hyperlipidemia, unspecified

== ENCOUNTER → 2016-12-25 | Outpatient (CLI) | payer OTHER, BC ==
[~2016-12-25] MED LIST changes: +CALC-323 PO; +ERGO500037 PO; +MULT-663 PO
[2016-12-25 16:47] LABS: HEMATOCRIT 42.9 % (37-47); MEAN CELL VOLUME 87.7 fL (80-100); MEAN CORPUSCULAR HEMOGLOBIN 29.2 pg (25-34); MEAN CORPUSCULAR HGB CONC 33.3 g/dl (32-36); MEAN PLATELET VOLUME 11.2 fL (7.4-10.4); PLATELET COUNT 301 K/uL (130-400); RED BLOOD COUNT 4.89 M/uL (4.2-5.4); URINE APPEARANCE CLEAR (CLEAR); URINE BILIRUBIN NEG (NEG); URINE COLOR YELLOW; URINE EPITHELIAL CELL AUTO 20-30 /lpf (0-5); URINE NITRITE NEG (NEG); URINE PH 5.5 (4.5-7.5); URINE SPECIFIC GRAVITY 1.012 (1.000-1.030); UROBILINOGEN NEG (NEG); WHITE BLOOD COUNT 5.26 K/uL (4.8-10.8)
[2016-12-25 16:49] LABS: MANUAL MICROSCOPIC REQUIRED? NO; REVIEW REQ? NO
[2016-12-25 17:41] LABS: ALKALINE PHOSPHATASE 102 U/L (45-117); ALT/SGPT 56 U/L (12-78); AST/SGOT 31 U/L (15-37); BLOOD UREA NITROGEN 12 mg/dl (7-18); BUN/CREATININE RATIO 18.5 (10-20); CALCIUM 8.8 mg/dl (8.5-10.1); CARBON DIOXIDE 26 mmol/L (21-32); CHLORIDE 108 mmol/L (98-107); CREATININE 0.67 mg/dl (0.60-1.20); GLUCOSE 107 mg/dl (70-99); HDL CHOLESTEROL 59 mg/dl; POTASSIUM 4.1 mmol/L (3.5-5.1); SODIUM 143 mmol/L (136-145)
[2016-12-25 17:42] LABS: ALB/GLOB RATIO 1.1 (0.9-2); CHOLESTEROL 323 mg/dl (0-200); CHOLESTEROL/HDL RATIO 5.5; LDL CHOLESTEROL CALCULATED 223 mg/dl; TRIGLYCERIDES 206 mg/dl (0-150); VERY LOW DENSITY LIPOPROT CALC 41 mg/dl
[2016-12-26 08:59] LABS: ESTIMATED AVERAGE GLUCOSE 151 mg/dl; HA1C FLAG Normal (Normal)
== END | disposition home or self-care (01) ==
LOC: C.LABBFT 12:40
PROVIDERS: ATTEND Internal Medicine
DX: E78.5 Hyperlipidemia, unspecified (principal); E11.9 Type 2 diabetes mellitus without complications; R42 Dizziness and giddiness; E55.9 Vitamin D deficiency, unspecified; K76.0 Fatty (change of) liver, not elsewhere classified; R10.32 Left lower quadrant pain; R10.814 Left lower quadrant abdominal tenderness

== ENCOUNTER → 2017-01-25 | Outpatient (CLI) | payer OTHER, BC | END | disposition home or self-care (01) | LOC: C.PATHSPEC 17:18 | PROVIDERS: ATTEND Urology | DX: N39.41 Urge incontinence (principal) ==

== ENCOUNTER → 2017-02-12 | Outpatient (CLI) | payer OTHER, BC ==
[~2017-02-12] MED LIST changes: -CALC-323 PO; -ERGO500037 PO; -MULT-663 PO
[2017-02-12 17:33] LABS: LYME DISEASE AB IGG NEG (NEG); LYME DISEASE AB IGM NEG (NEG)
== END ==
LOC: C.LABBFT 12:32
PROVIDERS: ATTEND Internal Medicine
DX: R50.9 Fever, unspecified (principal); M25.50 Pain in unspecified joint

== ENCOUNTER → 2017-05-06 | Outpatient (CLI) | payer OTHER, BC ==
[2017-05-06 17:55] LABS: ALT/SGPT 44 U/L (12-78); AST/SGOT 27 U/L (15-37); BLOOD UREA NITROGEN 13 mg/dl (7-18); BUN/CREATININE RATIO 18.7 (10-20); CALCIUM 8.9 mg/dl (8.5-10.1); CARBON DIOXIDE 25 mmol/L (21-32); CHLORIDE 105 mmol/L (98-107); CREATININE 0.72 mg/dl (0.60-1.20); GLUCOSE 114 mg/dl (70-99); POTASSIUM 4.1 mmol/L (3.5-5.1); SODIUM 139 mmol/L (136-145)
[2017-05-06 18:03] LABS: ALB/GLOB RATIO 1.1 (0.9-2); ALKALINE PHOSPHATASE 121 U/L (45-117); CHOLESTEROL 326 mg/dl (0-200); CHOLESTEROL/HDL RATIO 5.6; HDL CHOLESTEROL 58 mg/dl; LDL CHOLESTEROL CALCULATED 204 mg/dl; THYROID STIMULATING HORMONE 0.816 uIu/ml (0.300-4.500); TRIGLYCERIDES 321 mg/dl (0-150); VERY LOW DENSITY LIPOPROT CALC 64 mg/dl
== END | disposition home or self-care (01) ==
LOC: C.LABBFT 13:34
PROVIDERS: ATTEND Internal Medicine
DX: E78.5 Hyperlipidemia, unspecified (principal); E11.9 Type 2 diabetes mellitus without complications; L65.9 Nonscarring hair loss, unspecified; R63.5 Abnormal weight gain

== ENCOUNTER 2017-07-08 18:47 | Emergency (ER) | payer OTHER, BC ==
[~2017-07-08] VITALS: Ht 152.4 cm; Wt 78.7 kg
[2017-07-08 18:53] VITALS: TEMP 36.6; Ht 152.4 cm; Wt 78.7 kg
[2017-07-08] MEDS ORDERED: ACETAMINOPHEN 325 MG TAB PO STA (19:31)
[2017-07-08] MEDS ORDERED: MULT-663 PO (19:36)
[2017-07-08] MEDS ORDERED: ERGO500037 PO (19:36)
[2017-07-08] MEDS ORDERED: CALC-323 PO (19:38)
[2017-07-08 19:42] LABS: BASO ABS # 0.07 K/uL (0-0.2); COMPLETE YES; EOS % 2.7 %; HEMATOCRIT 42.4 % (37-47); IG% 0.1 %; LYMPH % 40.6 %; LYMPH ABS # 2.82 K/uL (1.2-3.4); MEAN CORPUSCULAR HEMOGLOBIN 30.3 pg (25-34); MEAN CORPUSCULAR HGB CONC 34.4 g/dl (32-36); MEAN PLATELET VOLUME 10.4 fL (7.4-10.4); MONO % 8.8 %; NEUT % 46.8 %; PLATELET COUNT 298 K/uL (130-400); RED BLOOD COUNT 4.82 M/uL (4.2-5.4); WHITE BLOOD COUNT 6.95 K/uL (4.8-10.8)
--- NOTE | 2017-07-08 19:49 | EMERGENCY ROOM VISIT NOTE ---
History First contact with patient: 18:59 Chief Complaint: BACK PAIN Stated Complaint: SEVERE UPPER L BACK PAIN RADIATING TO L SHOULDER,W History of Present Illness The patient is a 66 year old female who presents to the Emergency Room with complaints left upper back pain. Pt has a PMH significant for HTN, T2DM, HLD, DE LA TORRE Patient remarks the symptoms began 5 days ago and initially thought that it was because she slept on it wrong. She says that she came into today because the pain has progressively gotten worse; radiating into her shoulders. It is now associated with dyspnea with exertion, weakness, diaphoresis, dizziness for 1.5 days. She also reports having a nonproductive cough and subjective feelings of fever since yesterday. Patient says that the pain is better with massage. Patient denies hemoptysis, LE swelling/redness, recent immobility or family history of blood clots. She denies receiving a flu shot this year. Review of Systems see below Constitutional: + fever, + chills, + sweats Respiratory: + cough, + shortness of breath, + dyspnea on exertion, No sputum, No wheezing Cardiovascular: No chest pain, No orthopnea, No edema, No palpitations Abdomen: No pain, No nausea, No vomiting, No diarrhea Past Medical/Surgical History Medical Problems: (1) Cameron's Esophagus (2) Diabetes (3) Diverticulitis (4) Fibromyalgia (5) H/O migraine (6) Hyperlipidemia (7) Hypertension (8) Pneumonia Family History Cancer Heart disease Hypertension Lung disease Social History Smoking Status: Never Smoker Drug Use: none Marital Status: Housing Status: lives with significant other Occupation Status: retired Current/Historical Medications Scheduled Calcium Citrate-Vitamin D (Citracal Maximum), 1 TAB PO 3XWK Ergocalciferol (Vitamin D 04676 Unit), 50,000 UNIT PO 2XMONTH Esomeprazole Magnesium (Nexium), 40 MG PO DAILY Famotidine (Pepcid), 20 MG PO HS Lisinopril (Lisinopril), 10 MG PO QAM Mometasone Furoate (Nasal) (Mometasone Furoate), 2 SPRAY ДМИТРИЙ BID Multiple Vitamin (Multi Vitamin), 1 TAB PO DAILY [Lovaza], 1 GM PO BID Scheduled PRN Acetaminophen (Tylenol), 500 MG PO DIRECTED PRN for Pain Physical Exam Vital Signs Date Time Temp Pulse Resp B/P (MAP) Pulse Ox O2 Delivery O2 Flow Rate FiO2 07/08/17 20:21 76 18 143/73 94 Room Air 07/08/17 19:19 83 07/08/17 18:53 36.6 83 18 171/99 95 Room Air Physical Exam see below General Appearance: WD/WN, no apparent distress Head: normocephalic, atraumatic Respiratory/Chest: chest non-tender, lungs clear, normal breath sounds, no respiratory distress, no accessory muscle use Cardiovascular: regular rate, rhythm, no edema, no gallop, no JVD, no murmur , normal peripheral pulses Back: no CVA tenderness, + pertinent finding (tendness with palpation of left subscapular region. Overlying erythema. scattered papules. ) Medical Decision & Procedures Laboratory Results 07/08/17 19:10 Red Blood Count 4.82, Mean Corpuscular Volume 88.0, Mean Corpuscular Hemoglobin 30.3, Mean Corpuscular Hemoglobin Concent 34.4, Mean Platelet Volume 10.4, Neutrophils (%) (Auto) 46.8, Lymphocytes (%) (Auto) 40.6, Monocytes (%) (Auto) 8.8, Eosinophils (%) (Auto) 2.7, Basophils (%) (Auto) 1.0, Neutrophils # (Auto) 3.25, Lymphocytes # (Auto) 2.82, Monocytes # (Auto) 0.61, Eosinophils # (Auto) 0.19, Basophils # (Auto) 0.07 07/08/17 19:10 Test 07/08/17 19:10 07/08/17 19:45 White Blood Count 6.95 K/uL (4.8-10.8) Red Blood Count 4.82 M/uL (4.2-5.4) Hemoglobin 14.6 g/dL (12.0-16.0) Hematocrit 42.4 % (37-47) Mean Corpuscular Volume 88.0 fL (80-100) Mean Corpuscular Hemoglobin 30.3 pg (25-34) Mean Corpuscular Hemoglobin Concent 34.4 g/dl (32-36) Platelet Count 298 K/uL (130-400) Mean Platelet Volume 10.4 fL (7.4-10.4) Neutrophils (%) (Auto) 46.8 % Lymphocytes (%) (Auto) 40.6 % Monocytes (%) (Auto) 8.8 % Eosinophils (%) (Auto) 2.7 % Basophils (%) (Auto) 1.0 % Neutrophils # (Auto) 3.25 K/uL (1.4-6.5) Lymphocytes # (Auto) 2.82 K/uL (1.2-3.4) Monocytes # (Auto) 0.61 K/uL (0.11-0.59) Eosinophils # (Auto) 0.19 K/uL (0-0.5) Basophils # (Auto) 0.07 K/uL (0-0.2) RDW Standard Deviation 42.7 fL (36.4-46.3) RDW Coefficient of Variation 13.2 % (11.5-14.5) Immature Granulocyte % (Auto) 0.1 % Immature Granulocyte # (Auto) 0.01 K/uL (0.00-0.02) Anion Gap 9.0 mmol/L (3-11) Est Creatinine Clear Calc Drug Dose 64.1 ml/min Estimated GFR () 90.5 Estimated GFR (Non- 78.1 BUN/Creatinine Ratio 19.4 (10-20) Calcium Level 9.1 mg/dl (8.5-10.1) Total Bilirubin 0.9 mg/dl (0.2-1) Aspartate Amino Transf (AST/SGOT) 41 U/L (15-37) Alanine Aminotransferase (ALT/SGPT) 59 U/L (12-78) Alkaline Phosphatase 121 U/L (45-117) Troponin I < 0.015 ng/ml (0-0.045) Total Protein 7.4 gm/dl (6.4-8.2) Albumin 3.8 gm/dl (3.4-5.0) Globulin 3.6 gm/dl (2.5-4.0) Albumin/Globulin Ratio 1.1 (0.9-2) Chemistry Specimen Hemolysis Influenza Type A (RT-PCR) Neg for Influ A (NEG) Influenza Type B (RT-PCR) Neg for Influ B (NEG) Medications Administered Medications (Trade) Dose Ordered Sig/Pierre Route Start Time Stop Time Status Last Admin Dose Admin Acetaminophen (Tylenol Tab) 650 mg NOW STAT PO 07/08/17 19:31 07/08/17 19:36 DC 07/08/17 19:45 650 MG ECG Rate (beats per minute): 82 Rhythm: normal sinus Findings: no ectopy Change: no significant change ED Course 1929 History and Physical performed 1944 Ordered labs and imaging 1999 reaccessed patient 2015 reviewed patients labs and CXR Medical Decision 66 yo female presents to the ED with left shoulder pain and SOB, fatigue. Patient does have a number of risk factors for cardiac events; obesity, HLD, HTM T2DM, DE LA TORRE. Patient currently not taking a cholesterol lowering medication. Considering the following differential; PNA, Influenza, MSK, Shingles, ACS, Aortic dissection Patient Well score is 0. Low probability of PE. Ordered the following test; EKG, troponin, CXR, CBC, CMP, rapid flu Prescribed Tylenol for pain CXR and labs were unremarkable. EKG negative for new acute changes. Patient was 96 % sats with ambulatory pulse ox. Patient's pain symptoms were reduced with Tylenol. Patient symptoms unlikely cardiopulmonary in origin. It is more likely that her symptoms are MSK. Considering overlying erythema, would still consider shingles. Patient instructed to follow up closely with her primary care physician. Impression Primary Impression: Shoulder pain, left Departure Information Dispostion Home / Self-Care Condition GOOD Referrals Sera Crespo M.D. (PCP) Patient Instructions My [facility] Additional Instructions Ms. Austin, Desmond came to the ED with left shoulder pain. We did a number of test and labs. We did a chest x-ray and troponin. You symptoms do not appear to be cardiac in origin. You do have some risk factors for heart disease; hypertension, hyperlipidemia and diabetes. These conditions, as well as your shoulder symptoms should be closely followed up with your primary care doctor. We recommend seeing your PCP in the next couple of days. Acetaminophen(Tylenol) may be used for fever or pain. Use 1000mg every eight hours as needed. Avoid using more than 3000mg in a 24 hour period. This is available over the counter. Read all the package inserts or medication information paperwork provided. If you have any questions or concerns call your primary provider, pharmacist or the ER for assistance. Rest and avoid heavy lifting until your symptoms resolve and then gradually return to full activity. A good rule of thumb is if it hurts your back to perform a certain activity, then it should be avoided until you are healthy again. A heating pad, warm compresses, or a hot shower may help with tight muscles and can be done several times a day as needed. Continue current medications. Follow up with your primary care physician within 3-5 days for a recheck of your current condition
[2017-07-08 20:30] LABS: INFLUENZA A PCR Neg for Influ A (NEG); INFLUENZA B PCR Neg for Influ B (NEG)
--- NOTE | 2017-07-08 20:34 | DIAGNOSTIC IMAGING REPORT ---
CHEST 2 VIEWS ROUTINE CLINICAL HISTORY: Shortness of breath and cough. COMPARISON STUDY: Chest radiograph September 04, 2016. FINDINGS: Lung volumes are normal. Mild elevation/eventration of the right hemidiaphragm is unchanged. There is no evidence of pulmonary edema. No consolidation is identified to suggest pneumonia. Linear lower lung opacities suggest atelectasis. Cardiomediastinal silhouette is normal. IMPRESSION: No acute cardiopulmonary findings. Electronically signed by: Clarence Ricci M.D. 07/08/2017 8:32 PM Dictated Date/Time: 07/08/2017 8:32 PM
[2017-07-08 21:08] LABS: ALB/GLOB RATIO 1.1 (0.9-2); ALKALINE PHOSPHATASE 121 U/L (45-117); ALT/SGPT 59 U/L (12-78); AST/SGOT 41 U/L (15-37); BLOOD UREA NITROGEN 15 mg/dl (7-18); BUN/CREATININE RATIO 19.4 (10-20); CALCIUM 9.1 mg/dl (8.5-10.1); CARBON DIOXIDE 24 mmol/L (21-32); CHLORIDE 105 mmol/L (98-107); CREATININE 0.78 mg/dl (0.60-1.20); GLUCOSE 129 mg/dl (70-99); SODIUM 138 mmol/L (136-145)
[2017-07-08 21:44] VITALS: BP 134/72; PULSE 81; O2SAT 97
--- NOTE | 2017-07-08 21:54 | EMERGENCY ROOM VISIT NOTE ---
History First contact with patient: 18:59 Chief Complaint: BACK PAIN Stated Complaint: SEVERE UPPER L BACK PAIN RADIATING TO L SHOULDER,W History of Present Illness The patient is a 66 year old female who presents to the Emergency Room with complaints of 5 days of left posterior shoulder and upper back pain. Denies trauma or change in activity. States slightly similar to prior episode of esophagitis/PUD except that episode was more central. Pain worse with movement , no other change with position. No cp, sob, n/v/d, no neck pain, no paresthesias, no weakness in UE, no headache/dizziness. Yesterday began having mild cold like symptoms and is concerned about perhaps pneumonia. No recent change in meds. No prior cardiac hx despite risk factors. No tx BURRER HAND. Review of Systems See HPI for pertinent positives & negatives. A total of 10 systems reviewed and were otherwise negative. Past Medical/Surgical History Medical Problems: (1) Cameron's Esophagus (2) Diabetes (3) Diverticulitis (4) Fibromyalgia (5) H/O migraine (6) Hyperlipidemia (7) Hypertension (8) Pneumonia Family History Cancer Heart disease Hypertension Lung disease Social History Smoking Status: Never Smoker Drug Use: none Marital Status: Housing Status: lives with significant other Occupation Status: retired Current/Historical Medications Scheduled Calcium Citrate-Vitamin D (Citracal Maximum), 1 TAB PO 3XWK Ergocalciferol (Vitamin D 03238 Unit), 50,000 UNIT PO 2XMONTH Esomeprazole Magnesium (Nexium), 40 MG PO DAILY Famotidine (Pepcid), 20 MG PO HS Lisinopril (Lisinopril), 10 MG PO QAM Mometasone Furoate (Nasal) (Mometasone Furoate), 2 SPRAY ДМИТРИЙ BID Multiple Vitamin (Multi Vitamin), 1 TAB PO DAILY [Lovaza], 1 GM PO BID Scheduled PRN Acetaminophen (Tylenol), 500 MG PO DIRECTED PRN for Pain Physical Exam Vital Signs Date Time Temp Pulse Resp B/P (MAP) Pulse Ox O2 Delivery O2 Flow Rate FiO2 07/08/17 21:44 81 16 134/72 97 07/08/17 21:23 81 16 134/72 97 Room Air 07/08/17 21:23 96 Room Air 07/08/17 20:21 76 18 143/73 94 Room Air 07/08/17 19:19 83 12/7/17 18:53 36.6 83 18 171/99 95 Room Air Physical Exam See PE below General Appearance: WD/WN, no apparent distress Head: normocephalic, atraumatic Eyes: normal inspection, PERRL, EOMI ENT: hearing grossly normal Neck: supple, trachea midline Respiratory/Chest: chest non-tender, no respiratory distress, no accessory muscle use Cardiovascular: regular rate, rhythm, no edema, no JVD, normal peripheral pulses Abdomen / GI: non tender, soft Back: normal inspection, no CVA tenderness Extremities: normal inspection, normal capillary refill, no pedal edema, normal range of motion 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, alert, normal mood/affect, oriented x 3 Medical Decision & Procedures Laboratory Results 07/08/17 19:10 Red Blood Count 4.82, Mean Corpuscular Volume 88.0, Mean Corpuscular Hemoglobin 30.3, Mean Corpuscular Hemoglobin Concent 34.4, Mean Platelet Volume 10.4, Neutrophils (%) (Auto) 46.8, Lymphocytes (%) (Auto) 40.6, Monocytes (%) (Auto) 8.8, Eosinophils (%) (Auto) 2.7, Basophils (%) (Auto) 1.0, Neutrophils # (Auto) 3.25, Lymphocytes # (Auto) 2.82, Monocytes # (Auto) 0.61, Eosinophils # (Auto) 0.19, Basophils # (Auto) 0.07 07/08/17 19:10 Test 07/08/17 19:10 07/08/17 19:45 White Blood Count 6.95 K/uL (4.8-10.8) Red Blood Count 4.82 M/uL (4.2-5.4) Hemoglobin 14.6 g/dL (12.0-16.0) Hematocrit 42.4 % (37-47) Mean Corpuscular Volume 88.0 fL (80-100) Mean Corpuscular Hemoglobin 30.3 pg (25-34) Mean Corpuscular Hemoglobin Concent 34.4 g/dl (32-36) Platelet Count 298 K/uL (130-400) Mean Platelet Volume 10.4 fL (7.4-10.4) Neutrophils (%) (Auto) 46.8 % Lymphocytes (%) (Auto) 40.6 % Monocytes (%) (Auto) 8.8 % Eosinophils (%) (Auto) 2.7 % Basophils (%) (Auto) 1.0 % Neutrophils # (Auto) 3.25 K/uL (1.4-6.5) Lymphocytes # (Auto) 2.82 K/uL (1.2-3.4) Monocytes # (Auto) 0.61 K/uL (0.11-0.59) Eosinophils # (Auto) 0.19 K/uL (0-0.5) Basophils # (Auto) 0.07 K/uL (0-0.2) RDW Standard Deviation 42.7 fL (36.4-46.3) RDW Coefficient of Variation 13.2 % (11.5-14.5) Immature Granulocyte % (Auto) 0.1 % Immature Granulocyte # (Auto) 0.01 K/uL (0.00-0.02) Anion Gap 9.0 mmol/L (3-11) Est Creatinine Clear Calc Drug Dose 64.1 ml/min Estimated GFR () 90.5 Estimated GFR (Non- 78.1 BUN/Creatinine Ratio 19.4 (10-20) Calcium Level 9.1 mg/dl (8.5-10.1) Total Bilirubin 0.9 mg/dl (0.2-1) Aspartate Amino Transf (AST/SGOT) 41 U/L (15-37) Alanine Aminotransferase (ALT/SGPT) 59 U/L (12-78) Alkaline Phosphatase 121 U/L (45-117) Troponin I < 0.015 ng/ml (0-0.045) Total Protein 7.4 gm/dl (6.4-8.2) Albumin 3.8 gm/dl (3.4-5.0) Globulin 3.6 gm/dl (2.5-4.0) Albumin/Globulin Ratio 1.1 (0.9-2) Chemistry Specimen Hemolysis Influenza Type A (RT-PCR) Neg for Influ A (NEG) Influenza Type B (RT-PCR) Neg for Influ B (NEG) Medications Administered Medications (Trade) Dose Ordered Sig/Pierre Route Start Time Stop Time Status Last Admin Dose Admin Acetaminophen (Tylenol Tab) 650 mg NOW STAT PO 07/08/17 19:31 07/08/17 19:36 DC 07/08/17 19:45 650 MG Medical Decision Discussed case with resident. Discussed presentation/PE and orders placed. Reviewed labs/imaging. Pt stated pain improved with tylenol. Given 5 days of constant pain and negative trop doubt ACS. Low risk for PE and no resp component including with exertion. Doubt dissection - no wide mediastinum on cxr, equal pulses b/l, and improved with tylenol, no concurrent sx otw. No evidence of occult infectious etiology. Despite no significant change in activity recalled by patient, most likely musculoskeletal in origin at this time. Pt retired nurse and reliable to return. Discussed f/u with PCP given atypical presentation, sx to watch/return for, possible ddx, she verbalized understanding and was agreeable with plan. Medication Reconcilliation Current Medication List: was personally reviewed by me Blood Pressure Screening Patient's blood pressure: Elevated blood pressure Blood pressure disposition: Elevated BP felt to be situational Impression Primary Impression: Shoulder pain, left Departure Information Dispostion Home / Self-Care Condition GOOD Referrals Sera Crespo M.D. (PCP) Forms HOME CARE DOCUMENTATION FORM, IMPORTANT VISIT INFORMATION Patient Instructions [facility] Additional Instructions Ms. Austin, Desmond came to the ED with left shoulder pain. We did a number of test and labs. We did a chest x-ray and troponin. You symptoms do not appear to be cardiac in origin. You do have some risk factors for heart disease; hypertension, hyperlipidemia and diabetes. These conditions, as well as your shoulder symptoms should be closely followed up with your primary care doctor. We recommend seeing your PCP in the next couple of days. Acetaminophen(Tylenol) may be used for fever or pain. Use 1000mg every eight hours as needed. Avoid using more than 3000mg in a 24 hour period. This is available over the counter. Read all the package inserts or medication information paperwork provided. If you have any questions or concerns call your primary provider, pharmacist or the ER for assistance. Rest and avoid heavy lifting until your symptoms resolve and then gradually return to full activity. A good rule of thumb is if it hurts your back to perform a certain activity, then it should be avoided until you are healthy again. A heating pad, warm compresses, or a hot shower may help with tight muscles and can be done several times a day as needed. Continue current medications. Follow up with your primary care physician within 3-5 days for a recheck of your current condition Problem Qualifiers Primary Impression: Shoulder pain, left Chronicity: acute Qualified Codes: M25.512 - Pain in left shoulder
== END 2017-07-08 21:44 | disposition home or self-care (01) ==
LOC: C.EDB 18:48 → C.EDC 21:44
DX: M25.512 Pain in left shoulder (principal); I10 Essential (primary) hypertension; E11.9 Type 2 diabetes mellitus without complications; E78.5 Hyperlipidemia, unspecified; K75.81 Nonalcoholic steatohepatitis (NASH); M79.7 Fibromyalgia; K22.70 Barrett's esophagus without dysplasia; Z87.01 Personal history of pneumonia (recurrent); Z80.9 Family history of malignant neoplasm, unspecified; Z82.49 Family history of ischemic heart disease and other diseases of the circulatory system; Z79.899 Other long term (current) drug therapy; E66.9 Obesity, unspecified; Z68.33 Body mass index [BMI] 33.0-33.9, adult

== ENCOUNTER → 2017-08-04 | Outpatient (CLI) | payer OTHER, BC ==
[~2017-08-04] MED LIST changes: +CALC-323 PO; -CPR500 PO; +ERGO500037 PO; -GLC/500 PO; -VTMD PO
[2017-08-04 17:37] LABS: BASO % 0.6 %; BASO ABS # 0.03 K/uL (0-0.2); EOS % 2.6 %; EOS ABS # 0.13 K/uL (0-0.5); HEMATOCRIT 41.5 % (37-47); IG# 0.01 K/uL (0.00-0.02); LYMPH % 36.8 %; LYMPH ABS # 1.82 K/uL (1.2-3.4); MEAN CORPUSCULAR HEMOGLOBIN 29.4 pg (25-34); MEAN CORPUSCULAR HGB CONC 33.7 g/dl (32-36); MEAN PLATELET VOLUME 10.8 fL (7.4-10.4); MONO % 9.9 %; MONO ABS # 0.49 K/uL (0.11-0.59); NEUT % 49.9 %; NEUT ABS # 2.46 K/uL (1.4-6.5); PLATELET COUNT 294 K/uL (130-400); RED CELL DISTRIBUTION WIDTH CV 13.2 % (11.5-14.5); RED CELL DISTRIBUTION WIDTH SD 41.9 fL (36.4-46.3); WHITE BLOOD COUNT 4.94 K/uL (4.8-10.8)
[2017-08-04 18:41] LABS: ALBUMIN 3.6 gm/dl (3.4-5.0); ALKALINE PHOSPHATASE 120 U/L (45-117); ALT/SGPT 59 U/L (12-78); AST/SGOT 36 U/L (15-37); BLOOD UREA NITROGEN 12 mg/dl (7-18); CARBON DIOXIDE 24 mmol/L (21-32); CREATININE 0.67 mg/dl (0.60-1.20); GLUCOSE 124 mg/dl (70-99); POTASSIUM 3.7 mmol/L (3.5-5.1); SODIUM 137 mmol/L (136-145); TOTAL PROTEIN 7.3 gm/dl (6.4-8.2)
[2017-08-06 14:12] LABS: ANA SCREEN TC 249X NEGATIVE (NEGATIVE)
== END | disposition home or self-care (01) ==
LOC: C.LABBFT 13:37
PROVIDERS: ATTEND Internal Medicine
DX: S20.461A Insect bite (nonvenomous) of right back wall of thorax, initial encounter (principal); X58.XXXA Exposure to other specified factors, initial encounter; R53.83 Other fatigue; M25.512 Pain in left shoulder; E55.9 Vitamin D deficiency, unspecified

== ENCOUNTER → 2017-08-16 | Outpatient (CLI) | payer OTHER, BC ==
--- NOTE | 2017-08-17 07:51 | MAMMOGRAPHY REPORT ---
BILATERAL DIGITAL SCREENING MAMMOGRAM TOMOSYNTHESIS WITH CAD: 08/16/2017 CLINICAL HISTORY: Routine screening examination. TECHNIQUE: Breast tomosynthesis in addition to standard 2D mammography was performed. Current study was also evaluated with a Computer Aided Detection (CAD) system. COMPARISON: Comparison is made to exams dated: 08/13/2016 mammogram, 08/05/2015 mammogram, 07/30/2014 u ltrasound, 07/30/2014 mammogram, 07/17/2014 mammogram, and 07/12/2013 mammogram - [facility]. BREAST COMPOSITION: There are scattered areas of fibroglandular density in both breasts. FINDINGS: No new suspicious mass, architectural distortion or cluster of suspicious microcalcificati ons is seen. There are scattered stable asymmetries and benign rim calcifications in both breasts. IMPRESSION: ACR BI-RADS CATEGORY 1: NEGATIVE There is no mammographic evidence of malignancy. A 1 year screening mammogram is recommended. The pa tient will receive written notification of the results. Approximately 10% of breast cancers are not detected with mammography. A negative mammographic report should not delay biopsy if a clinically suggestive mass is present. Amrita Wilkinson M.D. ay/:08/16/2017 15:22:33 [employer] Analyst: Raquel CARPIO([place])(M), [facility] letter sent: Normal 1/2 BI-RADS Code: ACR BI-RADS Category 1: Negative
== END | disposition home or self-care (01) ==
LOC: C.MAMM 11:14
PROVIDERS: ATTEND Obstetrics & Gynecology
DX: Z12.31 Encounter for screening mammogram for malignant neoplasm of breast (principal)

== ENCOUNTER → 2017-10-28 | Outpatient (CLI) | payer OTHER, BC ==
[2017-10-28 16:48] LABS: ALBUMIN 3.8 gm/dl (3.4-5.0); ALT/SGPT 88 U/L (12-78); AST/SGOT 62 U/L (15-37); BLOOD UREA NITROGEN 13 mg/dl (7-18); CARBON DIOXIDE 25 mmol/L (21-32); CREATININE 0.68 mg/dl (0.60-1.20); GLUCOSE 126 mg/dl (70-99); POTASSIUM 3.9 mmol/L (3.5-5.1); SODIUM 135 mmol/L (136-145)
[2017-10-28 16:51] LABS: ALKALINE PHOSPHATASE 136 U/L (45-117); TOTAL PROTEIN 7.5 gm/dl (6.4-8.2)
[2017-10-29 06:39] LABS: HEMOGLOBIN A1C 7.9 % (4.5-5.6)
== END | disposition home or self-care (01) ==
LOC: C.LABBFT 13:54
PROVIDERS: ATTEND Internal Medicine
DX: E11.9 Type 2 diabetes mellitus without complications (principal); E55.9 Vitamin D deficiency, unspecified; I10 Essential (primary) hypertension

== ENCOUNTER → 2017-11-22 | Outpatient (CLI) | payer OTHER, BC | END | disposition home or self-care (01) | LOC: C.MAMM 13:10 | PROVIDERS: ATTEND Obstetrics & Gynecology | DX: Z13.820 Encounter for screening for osteoporosis (principal) ==

== ENCOUNTER → 2017-11-30 | Outpatient (CLI) | payer OTHER, BC | END | disposition home or self-care (01) | LOC: C.PAPS 17:51 | PROVIDERS: ATTEND Obstetrics & Gynecology | DX: Z12.4 Encounter for screening for malignant neoplasm of cervix (principal); R87.616 Satisfactory cervical smear but lacking transformation zone ==